=== PATIENT | male | born 1990 | race Hispanic/Latino ===

== ENCOUNTER 2019-12-12 22:18 | Emergency (ER) | payer SELFPAY ==
--- NOTE | ~2019-12-12 | XR_ITS ---
EXAMINATION: XR chest 2V 12/12/2019 22:49 INDICATION: Left-sided chest pain PROCEDURE: 2 view chest COMPARISON: 02/19/2019 FINDINGS: The lungs are clear. The cardiomediastinal silhouette is within normal limits. There are no pleural effusions. There is no pneumothorax suspected. IMPRESSION: 1: NO ACUTE CARDIOPULMONARY DISEASE. Reviewed, dictated and finalized at location A.
[2019-12-12 22:22] VITALS: BP 184/104; PULSE 101; RESP 29; TEMP 37; O2SAT 98
[2019-12-12 22:27] VITALS: PULSE 94
--- NOTE | 2019-12-12 22:27 | ECG_ITS ---
Measurements Intervals [place] Rate: 106 P: 25 CO: 162 QRS: -14 QRSD: 99 T: 19 QT: 321 QTc: 427 Interpretive Statements SINUS TACHYCARDIA DELAYED PRECORDIAL R/S TRANSITION BASELINE WANDER- AVR, AVF, V6 ABNORMAL ECG Electronically Signed On 12-13-2019 7:19:55 CDT by Francesco Gavin D.O.
[2019-12-12] MEDS: ASPIRIN 81 MG CHEWABLE TABLET 324 MG PO (22:35)
[2019-12-12 23:26] LABS: Basophils Percent Auto 0.4 % (0.2-1.2); Eosinophils Absolute Auto 0.2 K/mm3 (0-0.3); Eosinophils Percent Auto 1.7 % (0-4.4); Hematocrit 44.7 % (42.0-52.0); Hemoglobin 15.4 g/dL (14.0-18.0); Immature Granulocyte Absolute 0.03 K/mm3 (0.00-0.031); Immature Granulocyte Percent A 0.3 % (0-0.5); Lymphocytes Absolute Auto 2.94 K/mm3 (0.9-3.2); Lymphocytes Percent Auto 28.7 % (18.3-44.2); Mean Corpuscular HGB Conc 34.5 g/dl (32-36); Mean Corpuscular Hemoglobin 28.9 pg (26-34); Mean Platelet Volume 9.3 fl (7.4-10.4); Monocytes Absolute Auto 0.8 K/mm3 (0.1-0.6); Monocytes Percent Auto 7.6 % (2.6-8.5); Neutrophils Absolute Auto 6.3 K/mm3 (1.3-6.7); Neutrophils Percent Auto 61.3 % (45.5-73.1); Platelet Count Result 354 k/mm3 (150-375); Red Blood Count 5.32 M/mm3 (4.6-6.20); White Blood Count 10.2 K/mm3 (4.5-10.0)
[2019-12-12 23:36] LABS: INR 0.9; Prothrombin Time 12.3 Seconds (11.1-14.7)
[2019-12-12 23:37] LABS: Partial Thromboplastin Time 28.1 SECONDS (22.3-36.8)
[2019-12-12 23:38] LABS: Blood Urea Nitrogen 15 mg/dL (9-20); Calcium 9.3 mg/dL (8.4-10.2); Carbon Dioxide 24 mmol/L (22-30); Chloride 106 mmol/L (98-107); Estimated Glomerular Filt Rate > 60; Glucose 64 mg/dL (75-110); Potassium 3.6 mmol/L (3.4-5.0); Sodium 140 mmol/L (137-145)
[2019-12-12 23:47] VITALS: BP 136/77; PULSE 89; RESP 22; O2SAT 97
[2019-12-12 23:50] LABS: Troponin I < 0.012 ng/mL (0.000-0.034)
--- NOTE | 2019-12-12 23:52 | ED.CHESTPAIN ---
HPI - Chest Pain General Chief Complaint: Chest Pain Stated Complaint: L CHEST PAIN Time Seen by Provider: 12/12/19 22:29 Source: patient Mode of arrival: ambulatory Limitations: no limitations History of Present Illness HPI narrative: Patient is a 29-year-old male presents to the emergency department with complaint of chest pain. Patient ports onset of symptoms 4 days ago. Patient locates the pain in the left anterior chest and describes it as sharp and intermittent. He states the pain typically last couple of hours. Today's pain started at 9:00 this morning and has not subsided. Patient has been taking ibuprofen for pain which seems to help. He last took ibuprofen this morning which helped some. Patient denies any other associated symptoms or problems other than an occasional smoker's cough. complaint: chest pain Onset (ago): day(s) (4) Timing of current episode: episodic Pain location: left chest Quality: sharp Relieving factors: medication-other Exacerbating factors: nothing Treatment prior to arrival: other (ibuprofen) Risk Factors Coronary artery disease risk factors: smoking history Related Data Allergies Allergy/AdvReac Type Severity Reaction Status Date / Time No Known Allergies Allergy Verified 02/19/19 14:02 Review of Systems Review of Systems: All systems reviewed & are unremarkable except as noted in HPI and below Constitutional: Constitutional: Denies fever(s) Cardiovascular: Cardiovascular: Reports chest pain Respiratory: Respiratory: Reports cough and Denies dyspnea Gastrointestinal: Gastrointestinal: Denies nausea and Denies vomiting [facility] Past Medical History Medical History (Updated 12/13/19 @ 02:12 by Fatuma Torres MD) No significant past medical history Surgical History Surgical History (Updated 12/12/19 @ 23:56 by Fatuma Torres MD) History of hand surgery Social History Social History (Updated 12/12/19 @ 23:56 by Fatuma Torres MD) Smoking status: Current every day smoker Additional smoking assessment comments: 1 pack/week Gender identity (if verbalized by the patient): Male Exam Const: General: cooperative, no acute distress and alert Nutritional Appearance: obese Orientation/consciousness: patient oriented x3 Limitations: no limitations Chest: Chest palpation & inspection: normal inspection of the chest and no tenderness Resp: Effort & Inspection: normal respiratory effort Auscultation: clear to auscultation bilaterally Cardio: Rate: regular rate Rhythm: regular rhythm GI: GI Palp: Yes Soft to palpation and No Tenderness to palpation present (GI) Auscultation: normal bowel sounds Skin: General skin exam: normal color Neuro: General: patient oriented x3 Cognition (Neuro): normal cognition Speech: normal speech Extrem: General: normal to inspection, full ROM and no clubbing, cyanosis or edema Psych: Mental Status: mental status grossly normal Affect: normal affect Attitude: cooperative Course Course Emergency Course: Patient with improvement in symptoms after Toradol. Patient low risk heart score and negative troponin x2. Low risk for PE and negative d-dimer. Patient appropriate for outpatient management and advised primary care follow-up. Vital Signs Vital signs: Vital Signs Temperature 98.6 F 12/12/19 22:22 Pulse Rate 101 H 12/12/19 22:22 Respiratory Rate 29 H 12/12/19 22:22 Blood Pressure 184/104 H 12/12/19 22:22 Pulse Oximetry 98 12/12/19 22:22 Temperature 98.6 F 12/12/19 22:22 Pulse Rate 82 12/13/19 01:15 Respiratory Rate 12 12/13/19 01:15 Blood Pressure 122/75 12/13/19 01:15 Pulse Oximetry 95 12/13/19 01:15 MDM - Chest Pain Lab Data Attestation: I reviewed the patient's lab results. Result diagrams: 12/12/19 23:16 12/12/19 23:16 Labs: Lab Results 12/12/19 12/12/19 12/12/19 Range/Units 23:16 23:16 23:16 WBC 10.2 H (4.5-10.0) K/mm3 R
--- NOTE | 2019-12-12 23:58 | PC.NURSE ---
Lab aware of D Dimer add on.
[2019-12-13] MEDS: KETOROLAC 30 MG/ML VIAL (*BKC) IV PUSH (00:09)
[2019-12-13 00:23] LABS: D Dimer 0.27 ug/mL (<0.48)
[2019-12-13 01:15] VITALS: BP 122/75; PULSE 82; RESP 12; O2SAT 95
[2019-12-13 02:09] LABS: Troponin I < 0.012 ng/mL (0.000-0.034)
[2019-12-13 02:11] VITALS: BP 133/96; PULSE 93; RESP 19; O2SAT 95
[2019-12-13 02:15] VITALS: BP 136/79; PULSE 88; RESP 26; O2SAT 99
== END 2019-12-13 02:15 | disposition home or self-care (01) ==
PROVIDERS: Emergency Provider Emergency Medicine
DX: R07.9 Chest pain, unspecified (principal); F17.200 Nicotine dependence, unspecified, uncomplicated; R00.0 Tachycardia, unspecified; R94.31 Abnormal electrocardiogram [ECG] [EKG]
CPT/HCPCS: 36415; 71046; 80048; 84484; 85025; 85380; 85610; 85730; 93005; 96374; 99284; A9270; J1885

== ENCOUNTER 2020-05-16 21:48 | Emergency (ER) | payer SELFPAY ==
[2020-05-16 21:51] VITALS: BP 178/114; PULSE 108; RESP 18; TEMP 37.2; O2SAT 100
--- NOTE | 2020-05-16 22:31 | ED.EAR ---
HPI - Ear Problem General Chief complaint: Ear Stated complaint: left ear pain Time Seen by Provider: 05/16/20 22:12 Source: patient Mode of arrival: ambulatory Limitations: no limitations History of Present Illness HPI Narrative: Thsi patient is a 29 year old male who presents for evaluation left ear pain. He has been having pain inside his left ear for 4 days. He denies associated fever, nausea, vomiting, dizziness or fever. He also denies ear drainage. He took 1 amoxicillin yesterday and 1 amoxicillin today . He states today he is having pain when he bites down. MD Complaint: ear pain Location: left ear Duration: constant Related Data Allergies Allergy/AdvReac Type Severity Reaction Status Date / Time No Known Allergies Allergy Verified 02/19/19 14:02 Review of Systems Review of Systems: All systems reviewed & are unremarkable except as noted in HPI and below PMFSH Past Medical History Medical History (Updated 05/17/20 @ 00:00 by Romy Mac) No significant past medical history Surgical History Surgical History (Updated 12/12/19 @ 23:56 by Fatuma Torres MD) History of hand surgery Social History Social History (Updated 12/12/19 @ 23:56 by Fatuma Torres MD) Smoking status: Current every day smoker Additional smoking assessment comments: 1 pack/week Gender identity (if verbalized by the patient): Male Exam Const: General: no acute distress and alert Nutritional Appearance: obese Orientation/consciousness: patient oriented x3 HENMT: Head: normocephalic and atraumatic Ears: TM normal on the right and TM abnormal dull and erythematous on the left Face and sinus: normal facial exam, sinuses nontender, face symmetric and normal transillumination of the sinuses Mouth: Yes Normal oral and palatal mucosa present, Yes lip normal, Yes tongue normal, Yes oropharynx normal and Yes moist mucous membranes Teeth and gingiva: fair dentition Throat: posterior oropharynx normal, tonsils normal and uvula midline Resp: Effort & Inspection: normal respiratory effort Neuro: General: patient oriented x3 and moves all extremities Psych: Mental Status: mental status grossly normal Affect: normal affect Course Reevaluation(s) Reevaluation #1: Patient was found to have left otitis media and he was given an dose of antibiotics before discharge. Date: 05/16/20 Time: 23:08 Vital Signs Vital signs: Vital Signs Temperature 98.9 F 05/16/20 21:51 Pulse Rate 108 H 05/16/20 21:51 Respiratory Rate 18 05/16/20 21:51 Blood Pressure 178/114 H 05/16/20 21:51 Pulse Oximetry 100 05/16/20 21:51 Temperature 98.9 F 05/16/20 21:51 Pulse Rate 108 H 05/16/20 21:51 Respiratory Rate 18 05/16/20 21:51 Blood Pressure 178/114 H 05/16/20 21:51 Pulse Oximetry 100 05/16/20 21:51 Medical Decision Making Vital Signs Vital Signs: Vital Signs Temperature 98.9 F 05/16/20 21:51 Pulse Rate 108 H 05/16/20 21:51 Respiratory Rate 18 05/16/20 21:51 Blood Pressure 178/114 H 05/16/20 21:51 Pulse Oximetry 100 05/16/20 21:51 Temperature 98.9 F 05/16/20 21:51 Pulse Rate 108 H 05/16/20 21:51 Respiratory Rate 18 05/16/20 21:51 Blood Pressure 178/114 H 05/16/20 21:51 Pulse Oximetry 100 05/16/20 21:51 Discharge Plan Discharge Clinical Impression: Acute left otitis media Patient Disposition: Home, Self-Care Condition: Stable Instructions: Antibiotic Form, Ear Infection (ED) Prescriptions: New amoxicillin-pot clavulanate [Augmentin] 875-125 mg tablet 1 tablet PO Q12H Qty: 14 RF: 0 tramadol 50 mg tablet 50 mg PO Q6H PRN (Reason: pain) Qty: 7 RF: 0 Follow-up/Referrals: Parvez Gusman MD [Physician] - PHYSICIAN,[facility] [Primary Care Provider] - Discharge Date/Time: 05/16/20 23:26
[2020-05-16] MEDS: AMOXICILLIN/CLAVULANATE K 875-125 MG TAB 1 TABLET PO (23:06)
== END 2020-05-16 23:26 | disposition home or self-care (01) ==
PROVIDERS: Emergency Provider General Practice
DX: H66.92 Otitis media, unspecified, left ear (principal); F17.210 Nicotine dependence, cigarettes, uncomplicated
CPT/HCPCS: 99283; A9270

== ENCOUNTER 2020-11-12 10:26 | Outpatient (CLI) | payer OTHER, SELFPAY ==
--- NOTE | ~2020-11-12 | XR_ITS ---
XR knee LT 3V 11/12/2020 11:05 INDICATION: Left knee pain PROCEDURE: 3 views left knee COMPARISON: No prior studies for comparison. FINDINGS: Fracture, dislocation or subluxation is not identified. No significant joint effusion. The soft tissues appear within normal limits. No foreign bodies are identified. IMPRESSION: 1: NO ACUTE BONE OR JOINT ABNORMALITY IDENTIFIED. Reviewed, dictated and finalized at location B.
== END 2020-11-12 10:27 ==
LOC: MICIMG 10:28
PROVIDERS: Visit Provider Nurse Practitioner Family
DX: M25.562 Pain in left knee (principal)
CPT/HCPCS: 73562

== ENCOUNTER 2022-02-04 01:08 | Emergency (ER) | payer OTHER, SELFPAY ==
--- NOTE | ~2022-02-04 | XR_ITS ---
EXAMINATION: XR chest 2V DATE: 02/04/2022 01:57 INDICATION: Chest pain TECHNIQUE: PA and lateral views of the chest are obtained. COMPARISON: 12/12/2019 FINDINGS: The lungs are free of acute opacities. There is no pleural effusion or pneumothorax. The ca rdiomediastinal silhouette is normal. The visualized bones and soft tissues are unremarkable. IMPRESSION: 1. No acute cardiopulmonary abnormality. Reviewed, dictated and finalized at location A.
[2022-02-04 01:13] VITALS: BP 161/86; PULSE 90; RESP 18; TEMP 36.3; O2SAT 100
--- NOTE | 2022-02-04 01:19 | ECG_ITS ---
Measurements Intervals [place] Rate: 93 P: 32 [place]: 157 QRS: -3 QRSD: 107 T: 13 QT: 328 QTc: 408 Interpretive Statements SINUS RHYTHM WITHIN NORMAL LIMITS COMPARED TO ECG 12/12/2019 22:24:28 NO CHANGE Electronically Signed On 02-04-2022 7:56:44 CDT by Jax Edwards M.D.
[2022-02-04 01:20] VITALS: BP 151/90
--- NOTE | 2022-02-04 01:29 | ED.DIZZY ---
HPI - Dizziness General Chief Complaint: Dizziness <DARIUSZ Hasnon Last Filed: 02/04/22 02:51> Stated Complaint: dizzy <DARIUSZ Hanson Last Filed: 02/04/22 02:51> Time Seen by Provider: 02/04/22 01:24 <DARIUSZ Hanson Last Filed: 02/04/22 02:51> History of Present Illness HPI Narrative: Patient is a 31-year-old male with a history of hypertension, obesity here for evaluation of lightheadedness tonight. Patient states that he was seated in his usual state of health, when he gradually began to feel dizzy and lightheaded at the same time. States this improved after eating a meal. Patient was asymptomatic for about an hour, but then he developed some chest pain on the left side of his chest in addition to some numbness and tingling in his left arm and return of the lightheadedness. He states that the chest pain very lasted for 1-2 minutes, was sharp in nature, and is now resolved without intervention. Numbness and tingling in his left arm is still present along the ulnar aspect. Additionally having a headache along the left side of his head, has been experiencing intermittent headaches for several months and has alerted his primary care doctor who attributed them to hypertension. Denies weakness, fevers, chills, ear pain, hearing loss, visual changes, nausea, vomiting, shortness of breath, cough. <DARIUSZ Hanson Last Filed: 02/04/22 02:51> Related Data Home Medications: Home Medications Medication Instructions Recorded Confirmed ibuprofen 200 mg tablet 200 mg PO Q6H PRN 09/12/21 01/04/22 <DARIUSZ Hanson Last Filed: 02/04/22 02:51> Allergies/Adverse Reactions: Allergies Allergy/AdvReac Type Severity Reaction Status Date / Time No Known Allergies Allergy Verified 01/04/22 09:29 <DARIUSZ Hanson Last Filed: 02/04/22 02:51> Review of Systems Review of Systems: Gen: Reports lightheadedness. Denies fevers or chills Eyes: Denies eye pain or visual change ENT: Denies congestion Respiratory: Denies shortness of breath or cough CV: Reports chest pain. Denies palpitations GI: Denies abdominal pain nausea, emesis or diarrhea : denies burning, urgency, frequency or hematuria Musculoskeletal: Denies back pain or muscle pain Neuro: Reports headache, paresthesias in left arm. Skin: Denies rash Except as documented, all other systems reviewed and negative <Ema Parsons PA-C - Last Filed: 02/04/22 02:51> [facility] Past Medical History Medical History: Medical History Morbid (severe) obesity due to excess calories No significant past medical history <Ema Parsons PA-C - Last Filed: 02/04/22 02:51> Surgical History Surgical History: Surgical History History of hand surgery <Ema Parsons PA-C - Last Filed: 02/04/22 02:51> Family History Family History: Family History (Updated 01/04/22 @ 15:22 by Lamar Burt CMA) Father Acute myocardial infarction Mother Hypertension Hypothyroidism Sibling COVID-19 <Ema Parsons PA-C - Last Filed: 02/04/22 02:51> Social History Social History: Social History (Updated 01/04/22 @ 15:22 by Lamar Burt [facility]) Smoking status: Light tobacco smoker Tobacco type: cigarettes Second hand tobacco smoke exposure: No Additional smoking assessment comments: 1 pack/week Alcohol intake: current Substance use: never Substance use type: does not use 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
[2022-02-04 01:39] LABS: Basophils Absolute Auto 0.1 K/mm3 (0.0-0.1); Basophils Percent Auto 0.6 % (0.2-1.2); Eosinophils Absolute Auto 0.3 K/mm3 (0-0.3); Eosinophils Percent Auto 2.4 % (0-4.4); Hematocrit 50.3 % (42.0-52.0); Hemoglobin 16.4 g/dL (14.0-18.0); Immature Granulocyte Absolute 0.03 K/mm3 (0.00-0.031); Immature Granulocyte Percent A 0.3 % (0-0.5); Lymphocytes Absolute Auto 2.57 K/mm3 (0.9-3.2); Lymphocytes Percent Auto 24.1 % (18.3-44.2); Mean Corpuscular HGB Conc 32.6 g/dl (32-36); Mean Corpuscular Hemoglobin 27.6 pg (26-34); Mean Corpuscular Volume 84.7 fl (80-100); Monocytes Percent Auto 9.3 % (2.6-8.5); Neutrophils Absolute Auto 6.7 K/mm3 (1.3-6.7); Neutrophils Percent Auto 63.3 % (45.5-73.1); Platelet Count Result 293 k/mm3 (150-375); Red Blood Count 5.94 M/mm3 (4.6-6.20); Red Cell Distribution Width 14.6 % (11.5-14.5); White Blood Count 10.7 K/mm3 (4.5-10.0)
[2022-02-04 01:50] LABS: Alanine Aminotransferase 36 U/L (6-50); Albumin Level 4.5 g/dL (3.5-5.1); Alkaline Phosphatase 80 U/L (38-126); Anion Gap 7 mmol/L (8-16); Aspartate Amino Transferase 29 U/L (17-59); Bilirubin,Total 0.4 mg/dL (0.2-1.3); Blood Urea Nitrogen 18 mg/dL (9-20); Calcium 9.2 mg/dL (8.4-10.2); Carbon Dioxide 28 mmol/L (22-30); Chloride 106 mmol/L (98-107); Estimated CRCL calculation 116 ml/min; Estimated Glomerular Filt Rate > 60; Glucose 97 mg/dL (65-110); Potassium 3.8 mmol/L (3.4-5.0); Sodium 141 mmol/L (137-145)
[2022-02-04 02:26] LABS: Troponin I < 0.012 ng/mL (0.000-0.034)
[2022-02-04] MEDS: KETOROLAC 15 MG/ML VIAL (*BKC) IV PUSH (02:51)
[2022-02-04 02:53] VITALS: BP 136/73; PULSE 76; RESP 22; O2SAT 95
[2022-02-04 04:17] VITALS: BP 136/64; PULSE 67; RESP 20; O2SAT 95
[2022-02-04 05:22] VITALS: BP 131/53; PULSE 76; RESP 18; O2SAT 95
[2022-02-04 05:25] LABS: Troponin I < 0.012 ng/mL (0.000-0.034)
== END 2022-02-04 06:08 | disposition home or self-care (01) ==
PROVIDERS: Physician Assistant; Emergency Provider Emergency Medicine; PCP Family Medicine
DX: R42 Dizziness and giddiness (principal); I10 Essential (primary) hypertension; E66.01 Morbid (severe) obesity due to excess calories; Z68.42 Body mass index [BMI] 45.0-49.9, adult; F17.210 Nicotine dependence, cigarettes, uncomplicated
CPT/HCPCS: 36415; 71046; 80053; 84484; 85025; 93005; 96374; 99284; J1885

== ENCOUNTER 2023-02-12 17:06 | Emergency (ER) | payer OTHER, SELFPAY ==
--- NOTE | ~2023-02-12 | CT_ITS ---
EXAMINATION: CT abdomen pelvis w con DATE: 02/12/2023 20:09 INDICATION: Right lower quadrant abdominal pain TECHNIQUE: Computed tomography (CT) of the abdomen and pelvis was performed with 100 cc Omnipaque 350 intravenous contrast. Automated exposure control and iterative reconstruction technique were employe d. Exam dose: 1978.07 mGy-cm total exam DLP. COMPARISON: None. FINDINGS: There is minimal atelectasis at the lung bases. Normal heart size. No pericardial or pleural effusion. There is hepatic steatosis. No hepatic, splenic, pancreatic, adrenal space-occupying mass lesion. The gallbladder appears unremarkable. No bile duct or pancreatic duct dilatation. At least one cyst on each side kidney, the largest on the left, measuring 2.6 cm. No urinary tract calculus or hydroureteronephrosis. Normal caliber of the abdominal aorta. No periaortic or aortocaval lymphadenopathy. There are some nonenlarged iliac lymph nodes. The urinary bladder and prostate gland are unremarkable. Normal appendix. Diverticulosis of the colon; no evidence of diverticulitis. No bowel obstruction, karol wel wall thickening, pneumatosis or intraperitoneal free air. Small fat-containing umbilical hernia. No suspicious osteolytic or osteoblastic lesions. IMPRESSION: Normal appendix Diverticulosis of the colon; no evidence of diverticulitis Renal cysts Hepatic steatosis Reviewed, dictated and finalized at Location A. Reviewed, dictated and finalized at location A.
[2023-02-12 17:12] VITALS: BP 130/77; PULSE 100; RESP 18; TEMP 36.7; O2SAT 99
[2023-02-12 19:02] LABS: Basophils Absolute Auto 0.1 K/mm3 (0.0-0.1); Basophils Percent Auto 0.7 % (0.2-1.2); Eosinophils Absolute Auto 0.3 K/mm3 (0-0.3); Eosinophils Percent Auto 2.7 % (0-4.4); Hematocrit 47.1 % (42.0-52.0); Hemoglobin 15.5 g/dL (14.0-18.0); Immature Granulocyte Absolute 0.03 K/mm3 (0.00-0.031); Immature Granulocyte Percent A 0.3 % (0-0.5); Lymphocytes Absolute Auto 2.21 K/mm3 (0.9-3.2); Lymphocytes Percent Auto 22.3 % (18.3-44.2); Mean Corpuscular HGB Conc 32.9 g/dl (32-36); Mean Corpuscular Hemoglobin 28.6 pg (26-34); Mean Corpuscular Volume 86.9 fl (80-100); Mean Platelet Volume 9.3 fl (7.4-10.4); Monocytes Absolute Auto 0.8 K/mm3 (0.1-0.6); Monocytes Percent Auto 8.2 % (2.6-8.5); Neutrophils Absolute Auto 6.5 K/mm3 (1.3-6.7); Neutrophils Percent Auto 65.8 % (45.5-73.1); Platelet Count Result 273 k/mm3 (150-375); Red Blood Count 5.42 M/mm3 (4.6-6.20); Red Cell Distribution Width 13.6 % (11.5-14.5); White Blood Count 9.9 K/mm3 (4.5-10.0)
[2023-02-12 19:04] LABS: Appearance Urine Clear (Clear); Bilirubin Urine Negative (Negative); Blood Urine Negative (Negative); Color Urine Yellow (Yellow); Glucose Urine UA Negative (Negative); Ketones Urine Negative (Negative); Leukocyte Esterase Ur Negative LEU/UL (Negative); Nitrate Urine Negative (Negative); Protein Urine Negative (Negative); Specific Grav Ur 1.025 (1.001-1.035); Urobilinogen Urine 0.2 mg/dL (<2.0); pH Urine 5.5 (5.0-9.0)
[2023-02-12 19:06] LABS: Add Urine Microscopic? NO
[2023-02-12 19:11] LABS: Alanine Aminotransferase 35 U/L (6-50); Albumin Level 4.2 g/dL (3.5-5.1); Alkaline Phosphatase 83 U/L (38-126); Anion Gap 6 mmol/L (8-16); Aspartate Amino Transferase 33 U/L (17-59); Bilirubin,Total 0.3 mg/dL (0.2-1.3); Blood Urea Nitrogen 27 mg/dL (9-20); Calcium 8.9 mg/dL (8.4-10.2); Carbon Dioxide 27 mmol/L (22-30); Chloride 106 mmol/L (98-107); Estimated Glomerular Filt Rate > 60; Glucose 97 mg/dL (65-110); Lipase 63 U/L (23-300); Potassium 3.9 mmol/L (3.4-5.0); Sodium 139 mmol/L (137-145)
--- NOTE | 2023-02-12 19:22 | ED.GENADULT ---
HPI - General Adult General Chief complaint: Abdominal Pain Stated complaint: rlq and right low back pain/nausea Time Seen by Provider: 02/12/23 18:58 History of Present Illness HPI narrative: This is a 32-year-old male presenting to ED with chief complaint of back pain. Patient says that 1 week ago he started pain in his right flank. It is then transition wraps around into his right lower quadrant. It is sharp pain, 8/10 intensity and comes and goes. Never had pain like this before, no improvement with ibuprofen it is worse with movement. He has had some nausea but no vomiting. No dysuria or blood in his urine, no fever chills chest pain or difficulty breathing. No history of kidney stones. Related Data Allergies Allergy/AdvReac Type Severity Reaction Status Date / Time No Known Allergies Allergy Verified 02/12/23 18:51 [facility] Past Medical History Medical History Morbid (severe) obesity due to excess calories No significant past medical history Surgical History Surgical History H/O laser assisted in situ keratomileusis History of hand surgery Family History Family History Father Acute myocardial infarction Mother Hypertension Hypothyroidism Sibling COVID-19 Sibling Diabetes mellitus Hypertension Social History Social History Smoking status: Light tobacco smoker Tobacco type: cigarettes Second hand tobacco smoke exposure: No Additional smoking assessment comments: 1 pack/week Alcohol intake: current Substance use: never Substance use type: does not use Lack of Transportation: No Lack of Food: Never True Current Housing: I Have Housing Concerned About Future Housing: No Difficulty Paying Gas/Electric Bills: No Difficulty Paying for Meds: No Currently Unemployed: No Education: High School Diploma/GED Difficulty w/ Childcare or Family Care: No Living arrangements: with family Occupation/Education: occupation 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 Head: atraumatic. EYES: EOMI, NOSE: Atraumatic NECK: Trachea midline RESPIRATORY: No increased rate of breathing, CTAB CARDIOVASCULAR: RRR, ABDOMINAL: Obese but tenderness in the right lower quadrant without guarding or rebound. No cva tenderness MUSCULOSKELETAl: No obvious deformities NEURO: Alert. Moving 4/4 extremities SKIN:: Warm, dry. Normal color PSYCHIATRIC: Normal affect Course Vital Signs Vital signs: Vital Signs Temperature 98.1 F 02/12/23 17:12 Pulse Rate 100 02/12/23 17:12 Respiratory Rate 18 02/12/23 17:12 Blood Pressure 130/77 02/12/23 17:12 Pulse Oximetry 99 02/12/23 17:12 Oxygen Delivery Room Air 02/12/23 17:12 Temperature 98.7 F 02/12/23 19:39 Pulse Rate 82 02/12/23 19:39 Respiratory Rate 16 02/12/23 19:39 Blood Pressure 110/64 02/12/23 19:39 Pulse Oximetry 100 02/12/23 19:39 Oxygen Delivery Room Air 02/12/23 17:12 Medical Decision Making MDM Narrative Medical decision making narrative: -Presentation: 32-year-old male presenting with right-sided back and abdominal pain. abdominal lab work and CT abdomen pelvis has been ordered. 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 Lives with his mother. -External Chart Review: Review PCP office visits from August 2022 -Hx from independent Sources: mother @bedside -Independent interpretation of studies: she normal. Metabolic panel unrem
[2023-02-12] MEDS: ONDANSETRON INJ 4 MG/2 ML VIAL IV PUSH (19:26)
[2023-02-12] MEDS: HYDROmorphone HCL INJ (*CRX) 1 MG/ML SYR 0.5 MG IV PUSH (19:26)
[2023-02-12] MEDS: SODIUM CHLORIDE 0.9% IV 2,000 ML 999 ML IV CONT (19:27)
[2023-02-12] MEDS: methocarbamoL 750 MG TABLET 1500 MG PO (19:36)
[2023-02-12] MEDS: KETOROLAC 15 MG/ML VIAL (*BKC) IV PUSH (19:36)
[2023-02-12 19:39] VITALS: BP 110/64; PULSE 82; RESP 16; TEMP 37.1; O2SAT 100
== END 2023-02-12 21:21 | disposition home or self-care (01) ==
PROVIDERS: Emergency Medicine; Emergency Provider Emergency Medicine; PCP Family Medicine
DX: R10.31 Right lower quadrant pain (principal); M54.50 Low back pain, unspecified; E66.01 Morbid (severe) obesity due to excess calories; F17.210 Nicotine dependence, cigarettes, uncomplicated
CPT/HCPCS: 36415; 74177; 80053; 81003; 83690; 85025; 96361; 96374; 96375; 99284; A9270; J1170; J1885; J2405; J7030; Q9967

== ENCOUNTER 2023-02-22 14:37 | Outpatient (CLI) | payer OTHER, SELFPAY ==
--- NOTE | ~2023-02-22 | XR_ITS ---
EXAMINATION: XR chest 2V DATE: 02/22/2023 15:14 INDICATION: Cough, unspecified. TECHNIQUE: Frontal and lateral views of the chest were obtained. COMPARISON: Chest 2 views 02/04/2022, CT abdomen and pelvis 02/12/2023 FINDINGS: The chest demonstrates clear lungs without pneumonia, pleural effusion, or pneumothorax. Th e heart size is normal. IMPRESSION: 1. No acute cardiopulmonary disease. Reviewed, dictated and finalized at location E.
--- NOTE | ~2023-02-22 | XR_ITS ---
EXAMINATION: XR thoracic spine 3V DATE: 02/22/2023 15:14 INDICATION: Dorsalgia, unspecified. TECHNIQUE: 3 views of thoracic spine were obtained. COMPARISON: CT abdomen and pelvis 02/12/2023 FINDINGS: There is 10 degrees levoscoliosis of upper thoracic spine. Vertebral body heights are santy l. There is mildly decreased disc height at multiple levels. There are endplate osteophytes at most l evels. IMPRESSION: 1. Mild thoracic spondylosis. 2. Thoracic levoscoliosis. Reviewed, dictated and finalized at location E.
--- NOTE | ~2023-02-22 | XR_ITS ---
EXAMINATION: XR lumbar spine 6V w bending DATE: 02/22/2023 15:14 INDICATION: Dorsalgia, unspecified. TECHNIQUE: 6 views of lumbar spine including flexion and extension views were obtained. COMPARISON: None. FINDINGS: There is 10 degrees levoscoliosis of lumbar spine. The spine is hypomobile with flexion and extension. Vertebral body heights and intervertebral disc heights are normal. There is multilevel mi ld facet joint osteoarthritis. IMPRESSION: 1. Mild lumbar facet joint osteoarthritis. 2. Lumbar dextroscoliosis. Reviewed, dictated and finalized at location E.
== END 2023-02-22 14:38 | disposition home or self-care (01) ==
LOC: ANHIMG 14:43
PROVIDERS: PCP Family Medicine; Visit Provider Family Medicine
DX: M54.9 Dorsalgia, unspecified (principal); R05.9 Cough, unspecified; M47.896 Other spondylosis, lumbar region; M41.86 Other forms of scoliosis, lumbar region; M41.84 Other forms of scoliosis, thoracic region; M47.894 Other spondylosis, thoracic region
CPT/HCPCS: 71046; 72072; 72114

== ENCOUNTER 2024-02-04 14:32 | Outpatient (CLI) | payer OTHER, SELFPAY ==
--- NOTE | ~2024-02-04 | XR_ITS ---
EXAMINATION: XR foot RT 2V DATE: 02/04/2024 14:48 INDICATION: Right foot pain. TECHNIQUE: 2 views of right foot were obtained. COMPARISON: None. FINDINGS: Bone alignment is normal. No fracture. There is mild osteoarthritis of some of the midfoot joints. There is an enthesophyte at plantar aspect of calcaneal tuberosity. IMPRESSION: 1. Mild polyarticular osteoarthritis. Reviewed, dictated and finalized at location A.
[2024-02-04 15:34] LABS: Uric Acid 8.1 mg/dL (3.5-8.5)
== END 2024-02-04 14:33 | disposition home or self-care (01) ==
PROVIDERS: PCP Family Medicine
DX: M19.071 Primary osteoarthritis, right ankle and foot (principal); I10 Essential (primary) hypertension; E66.01 Morbid (severe) obesity due to excess calories
CPT/HCPCS: 36415; 73620; 84550

== ENCOUNTER 2024-07-20 17:27 | Emergency (ER) | payer OTHER, SELFPAY ==
--- NOTE | ~2024-07-20 | XR_ITS ---
XR chest 2V DATE: 07/20/2024 18:26 INDICATION: Chest pain, burning TECHNIQUE: PA and lateral views COMPARISON: 02/22/2023 PA and lateral chest FINDINGS: Normal heart size. No hilar or mediastinal enlargement. No pulmonary infiltrate or consolid ation, pleural effusion or pulmonary vascular congestion or pneumothorax. Included skeletal structures are unremarkable other than minimal degenerative spurring of the thoraci c spine. IMPRESSION: No active cardiopulmonary disease Reviewed, dictated and finalized at location [facility]. TH PSYCHOLOGIST
--- NOTE | ~2024-07-20 | CT_ITS ---
Non-contrast Head CT History: Headache Technique: Axial non-contrast imaging of the brain was performed. Dose reduction technique was used on this scan by utilizing automated exposure control and iterative reconstruction technique. The dose -length product (DLP) was 756.67 mGy-cm. Findings: There is no evidence of intracranial hemorrhage, solid mass lesion, or acute infarct. Arac hnoid cyst noted in the anterior left temporal fossa. Brain parenchyma appears normal. The ventricle s and subarachnoid spaces are otherwise normal in size. The calvarium appears normal. There is mild mucosal thickening in the right maxillary and ethmoid sinuses. The remaining visualized paranasal sin uses and mastoid air cells are clear. Impression: No acute intracranial abnormality. Left temporal fossa arachnoid cyst. Mild sinus disease, as above. Reviewed, dictated and finalized at [facility]. RTING ANALYST Impression: No acute intracranial abnormality. Left temporal fossa arachnoid cyst. Mild sinus disease, as above.
--- NOTE | ~2024-07-20 | CT_ITS ---
Clinical Indication: Cough, fever, abdominal pain CT Scan of the Chest, Abdomen, and Pelvis with Contrast: Technique: Contiguous sections were acquired throughout the chest, abdomen, and pelvis after intraven ous administration of 100 cc of Omnipaque 350. Dose reduction technique was used on this scan by saritha cooper automated exposure control and iterative reconstruction technique. The dose-length product (DL P) was 2470.85 mGy-cm. Comparison: 02/12/2023 Findings: There is no evidence of any significant mediastinal, hilar or axillary lymphadenopathy. The mediastin al soft tissues appear normal. There is no evidence of pleural or pericardial effusion. The lungs are clear. No pulmonary nodules or infiltrates are noted. The liver, spleen, pancreas, gallbladder, adrenals and kidneys are within normal limits. No evidence of aortic aneurysm. No lymphadenopathy. No bowel obstruction or bowel wall thickening. There is no evidence to suggest acute appendicitis. Urinary bladder is unremarkable. No pelvic mass seen. No ascites. Impression: No significant abnormalities seen. Reviewed, dictated and finalized at [facility]. ROASTER Impression: No significant abnormalities seen.
[2024-07-20 17:30] VITALS: BP 143/89; PULSE 114; RESP 19; TEMP 38.1; O2SAT 97
--- NOTE | 2024-07-20 17:36 | ECG_ITS ---
Test Date: 2024-07-20 17:46:07 Measurements Intervals [place] Rate: 124 P: 34 [place]: 156 QRS: -72 QRSD: 98 T: 45 QT: 281 QTc: 404 Interpretive Statements SINUS TACHYCARDIA MARKED LEFT AXIS DEVIATION [QRS AXIS < -30] PATTERN CONSISTENT WITH PULMONARY DISEASE No previous ECG available for comparison Electronically Signed On 07-21-2024 12:44:35 [place] by Richard Luevano M.D.
[2024-07-20 18:03] LABS: Basophils Absolute Auto 0.1 K/mm3 (0.0-0.1); Basophils Percent Auto 0.6 % (0.2-1.2); Eosinophils Absolute Auto 0.2 K/mm3 (0-0.3); Eosinophils Percent Auto 1.5 % (0-4.4); Hematocrit 49.5 % (42.0-52.0); Hemoglobin 16.9 g/dL (14.0-18.0); Immature Granulocyte Absolute 0.03 K/mm3 (0.00-0.031); Immature Granulocyte Percent A 0.3 % (0-0.5); Lymphocytes Absolute Auto 1.03 K/mm3 (0.9-3.2); Lymphocytes Percent Auto 10.1 % (18.3-44.2); Mean Corpuscular HGB Conc 34.1 g/dl (32-36); Mean Corpuscular Hemoglobin 28.6 pg (26-34); Mean Corpuscular Volume 83.8 fl (80-100); Mean Platelet Volume 9.1 fl (7.4-10.4); Monocytes Absolute Auto 1.2 K/mm3 (0.1-0.6); Monocytes Percent Auto 11.5 % (2.6-8.5); Neutrophils Absolute Auto 7.7 K/mm3 (1.3-6.7); Platelet Count Result 284 k/mm3 (150-375); Red Blood Count 5.91 M/mm3 (4.6-6.20); White Blood Count 10.2 K/mm3 (4.5-10.0)
[2024-07-20 18:15] LABS: Alanine Aminotransferase 31 U/L (6-50); Albumin Level 4.1 g/dL (3.5-5.1); Alkaline Phosphatase 83 U/L (38-126); Anion Gap 7 mmol/L (4-12); Aspartate Amino Transferase 34 U/L (17-59); Bilirubin,Total 0.6 mg/dL (0.2-1.3); Blood Urea Nitrogen 17 mg/dL (9-20); Calcium 8.9 mg/dL (8.4-10.2); Carbon Dioxide 25 mmol/L (22-30); Chloride 103 mmol/L (98-107); Estimated CRCL calculation 134 ml/min; Estimated Glomerular Filt Rate > 60; Glucose 121 mg/dL (65-110); Lipase 51 U/L (23-300); Potassium 3.4 mmol/L (3.4-5.0); Sodium 135 mmol/L (137-145)
[2024-07-20 18:41] LABS: Influenza A QL RT-PCR Negative (Negative); Influenza B QL RT-PCR Negative (Negative); RSV RNA, RT-PCR Negative (Negative); SARS-CoV-2 RNA PCR Negative (Negative)
[2024-07-20 21:46] VITALS: BP 141/85; PULSE 119; RESP 18; O2SAT 96
--- NOTE | 2024-07-20 21:57 | ED_ITS ---
HPI - Abdominal Pain General Chief Complaint: Abdominal Pain Stated Complaint: headache for 2 months/burning with cough/vomiting Time Seen by Provider: 07/20/24 21:15 Source: patient Mode of arrival: ambulatory Limitations: no limitations History of Present Illness HPI narrative: Patient is a 34-year-old male who presents the ED with multiple complaints. Reports he has been having a headache for the last 2 weeks, progressively worsening. Present throughout his left side. He does note history of frequent headaches. Has not taken anything for his pain. Also reports having intermittent right-sided lower abdominal pain, radiating around to his right lower back for the last 3 or so weeks. States pain became worse today which prompted him to come to the ED. Reports having nausea and vomiting today. Kory es diarrhea/constipation. Was noted to be febrile here. Denies fevers at home. Denies urinary complaints. Also reports having a cough and congestion for the last couple of days. Reports burning in his chest with coughing. Denies chest pain. Denies shortness of breath. Related Data Allergies Allergy/AdvReac Type Severity Reaction Status Date / Time No Known Allergies Allergy Verified 03/19/24 15:56 Review of Systems Review of Systems: All systems reviewed & are unremarkable except as noted in HPI. All systems reviewed & are unremarkable except as noted in HPI and below PMFSH Past Medical History Medical History Cough Morbid (severe) obesity due to excess calories Need for lipid screening No significant past medical history Surgical History Surgical History H/O laser assisted in situ keratomileusis History of hand surgery Family History Family History Father Acute myocardial infarction Mother Hypertension Hypothyroidism Sibling COVID-19 Sibling Diabetes mellitus Hypertension Social History Social History Smoking status: Light tobacco smoker Tobacco type: cigarettes Second hand tobacco smoke exposure: No Additional smoking assessment comments: 1 pack/month Alcohol intake: current Substance use: never Substance use type: does not use Do You Feel Safe in your Home?: Yes Lack of Transportation: No Lack of Food: Never True Current Housing: I Have Housing Concerned About Future Housing: No Difficulty Paying Gas/Electric Bills: No Difficulty Paying for Meds: No Currently Unemployed: No Education: High School Diploma/GED Difficulty w/ Childcare or Family Care: No Living arrangements: with family Occupation/Education: occupation 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 HEAD: Normocephalic, atraumatic. RESPIRATORY: Airway patent, respirations nonlabored. Clear to auscultation bilaterally, no rales, rhonchi, wheezing. No significant focal lung sounds. Occasional coughing on exam. CARDIOVASCULAR: Regular rate and rhythm without murmurs, rubs, or gallops. ABDOMINAL: Soft, tenderness to palpation diffusely in R abdomen- worst in right mid to lower abdomen, no rebound. Nondistended. Normoactive BS. MUSCULOSKELETAL: Moves all extremities. No gross deformities. No peripheral edema. SKIN: Warm, dry, normal color. NEURO: A&O X3. Speech clear. Cranial nerves II-XII grossly intact. Steady gait. No ataxic movements. No focal deficits. PSYCHIATRIC: Appropriate mood and affect. Normal interaction. Course Vital Signs Vital signs: Vital Signs Temperature 100.5 F H 07/20/24 17:30 Pulse Rate 114 H 07/20/24 17:30 Respiratory Rate 19 07/20/24 17:30 Blood Pressure 143/89 H 07/20/24 17:30 Pulse Oximetry 97 07/20/24 17:30 Oxygen Delivery Room Air 07/20/24 17:30 Temperature 99.4 F 07/20/24 22:03 Pulse Rate 101 H 07/21/24 01:13 Respiratory Rate 18 07/21/24 01:13 Blood Pressure 133/82 07/21/24 01:13 Pulse Oximetry 97 07/21/24 01:13 Oxygen Delivery Room Air 07/20/24 17:30 MDM - Abdominal Pain MDM Narrative Medical decision making narrative: Patient presented to ED with headache, right-sided abdominal pain, nausea, vomiting, cough. Patient noted to be tachycardic and febrile upon arrival. O2 stable on RA. Fluids and Tylenol initiated. Cbc with blood cell count of 10.2. CMP is unremarkable. Normal LFTs and lipase. UA with 6-10 WBC, 3+ urine bacteria. Sent for culture. Lactic WNL. Viral swabs are negative. EKG without ischemic changes. Troponin undetectable. Chest x-ray is clear. Patient denies any chest pain or shortness breath. Low suspicion for ACS/PE, low risk [place]. CT scan of brain showing arachnoid cyst on left side, otherwise no acute intracranial pathology. Patient does report known history of this. CT scan of chest/abdomen/pelvis was obtained and unremarkable. No evidence of pneumonia. No intra-abdominal abnormalities, no surgical findings. No cholelithiasis or GB etiology noted. Normal appendix. Overall workup is fairly non revealing. Discussed lab and imaging findings with patient. Given fevers and abnormal UA, will treat for UTI as there are no other appreciable infectious processes at this time. Symptoms may also be related to viral URI, viral infection. Per med rec, it appears patient is on semaglutide. Abdominal pain may be GI upset related to medication. Overall patient feels reassured by workup here. He is feeling better with supportive therapy. Feel he is safe for discharge home with outpatient follow- up. Recommended he have close follow-up with his PCP for further evaluation. He does report he has an appointment next Sunday. Discussed strict return pr ecautions should symptoms worsen. Patient in agreement with plan. Discharged in stable condition. Vital signs stable at time of D/C. Heart rate did improve into the 90s consistently after fluid administration. Medical Records Attestation: I reviewed the patient's medical records. Lab Data Attestation: I reviewed the patient's lab results. 07/20/24 17:57 07/20/24 17:57 Labs: Lab Results 07/20/24 07/20/24 07/20/24 Range/Units 17:57 21:43 23:05 WBC 10.2 H (4.5-10.0) K/mm3 RBC 5.91 (4.6-6.20) M/mm3 Hgb 16.9 (14.0-18.0) g/dL Hct 49.5 (42.0-52.0) % MCV 83.8 (80-100) fl MCH 28.6 (26-34) pg MCHC 34.1 (32-36) g/dl RDW 14.0 (11.5-14.5) % Plt Count 284 (150-375) k/mm3 MPV 9.1 (7.4-10.4) fl Immature Gran % (Auto) 0.3 (0-0.5) % Neut % (Auto) 76.0 H (45.5-73.1) % Lymph % (Auto) 10.1 L (18.3-44.2) % [place] % (Auto) 11.5 H (2.6-8.5) % Eos % (Auto) 1.5 (0-4.4) % Baso % (Auto) 0.6 (0.2-1.2) % Lymph # (Auto) 1.03 (0.9-3.2) K/mm3 [place] # (Auto) 1.2 H (0.1-0.6) K/mm3 Eos # (Auto) 0.2 (0-0.3) K/mm3 Baso # (Auto) 0.1 (0.0-0.1) K/mm3 Abs Immat Gran (auto) 0.03 (0.00-0.031) K/mm3 Absolute Neuts (auto) 7.7 H (1.3-6.7) K/mm3 Absolute Nucleated RBC 0.000 (0.0-0.012) K/mm3 Nucleated RBC % 0.0 (0.0-0.2) % Sodium 135 L (137-145) mmol/L Potassium 3.4 (3.4-5.0) mmol/L Chloride 103 (98-107) mmol/L Carbon Dioxide 25 (22-30) mmol/L Anion Gap 7 (4-12) mmol/L BUN 17 D (9-20) mg/dL Creatinine 1.10 (0.7-1.3) mg/dL Estim Creat Clear Calc 134 ml/min Estimated GFR > 60 (59 - ) Glucose 121 H (65-110) mg/dL Lactic Acid 0.9 (0.7-2.0) mmol/L Calcium 8.9 (8.4-10.2) mg/dL Total Bilirubin 0.6 (0.2-1.3) mg/dL AST 34 (17-59) U/L ALT 31 (6-50) U/L Alkaline Phosphatase 83 (38-126) U/L Troponin I < 0.012 (0.000-0.034) ng/mL Total Protein 7.0 (6.3-8.2) g/dL Albumin 4.1 (3.5-5.1) g/dL Lipase 51 (23-300) U/L Urine Color Dark yellow (Yellow) Urine Appearance Cloudy H (Clear) Urine pH 6.5 (5.0-9.0) Ur Specific [place] 1.034 (1.001-1.035) Urine Protein Trace (Negative) mg/dL Urine Glucose (UA) Negative (Negative) mg/dL Urine Ketones Trace H (Negative) mg/dL Ur Blood (Man) Negative (Negative) Urine Nitrate Negative (Negative) Urine Bilirubin Negative (Negative) Urine Urobilinogen 1.0 (<2.0) mg/dL Add Ur Microanalysis Reviewed Leukocyte Esterase Rfl Trace H (Negative) RICKIE/UL Urine RBC 3-5 H (0-2) /hpf Urine WBC 6-10 H (0-3) /hpf Ur Squamous Epith Cells Few (Few) /hpf Urine Bacteria 3+ H /hpf Urine Casts 0-2 Influenza A (RT-PCR) Negative (Negative) Influenza B (RT-PCR) Negative (Negative) RSV (RT-PCR) Negative (Negative) SARS-CoV-2 RNA (RT-PCR) Negative (Negative) Imaging Data Attestation: I personally reviewed and interpreted this imaging study as follows: Radiologist's impression: ITS Impressions Chest X-Ray 07/20/24 18:35 IMPRESSION: No active cardiopulmonary disease STAT RAD CT brain: No acute intracranial hemorrhage. No midline shift or mass effect. The territory of [place]-white matter differentiation is maintained throughout. Arachnoid cyst anterior to left temporal lobe. The ventricles and sulci are commensurate with age. STAT RAD CT chest/abdomen/pelvis: No pulmonary contusion or pneumothorax. No acute fractures. No pneumonia. No traumatic visceral injury. No acute fractures. ECG Data EKG #1: Attestation: I personally reviewed and interpreted this ECG as follows: ECG completion date: 07/20/24 ECG completion time: 17:46 tachycardia (124), sinus rhythm and non-specific ST changes Discharge Plan Discharge Clinical Impression: Headache Qualifiers: Headache type: unspecified Headache chronicity pattern: acute headache Intractability: not intractable Qualified Code(s): R51.9 - Headache, unspecified UTI (urinary tract infection) Qualifiers: Urinary tract infection type: acute cystitis Hematuria presence: with hematuria Qualified Code(s): N30.01 - Acute cystitis with hematuria Abdominal pain Qualifiers: Abdominal location: unspecified location Qualified Code(s): R10.9 - Unspecified abdominal pain Patient Disposition: Home, Self-Care Condition: Stable Instructions: Antibiotic Form, Acute Headache (ED), Viral Syndrome (ED), Abdominal Pain (ED) Additional Instructions: Take antibiotics as prescribed for urinary tract infection. It is possible you may have a viral upper respiratory infection. Utilize Tessalon Perles as needed for cough. Recommend [id number] cough and cold medicines as needed for symptom relief. Continue Tylenol and ibuprofen as needed for pain and/or fevers. Increase fluid intake. Recommend electrolyte rich fluids, gatorade, pedialyte, body armour. Recommend clear liquids or bland diet until symptoms improve, such as bananas, rice, applesauce, toast, or crackers. Follow up with your primary care doctor for further evaluation. Return to the ED if you experience worsening or severe symptoms, unable to keep down food or drink, severe pain, fevers, rectal bleeding, vomiting blood, passing out, severe dizziness, or any other symptoms of concern. Prescriptions: New cephalexin 500 mg capsule 500 mg PO Q6H 7 Days Qty: 28 0RF benzonatate 200 mg capsule 200 mg PO TID PRN (Reason: cough) Qty: 15 0RF No Action lisinopril-hydrochlorothiazide 10-12.5 mg tablet 1 tablet PO DAILY Qty: 90 1RF Wegovy 0.25 mg/0.5 mL pen injector 0.25 mg subcut WEEKLY Qty: 2 3RF Follow-up/Referrals: Marc Newell MD [Primary Care Provider] - Stand Alone Forms: Work/School Release IP Time of Disposition: 00:49
[2024-07-20 22:03] VITALS: BP 125/88; PULSE 113; RESP 22; TEMP 37.4; O2SAT 94
[2024-07-20] MEDS: ACETAMINOPHEN 500 MG TABLET 1000 MG PO (22:04)
[2024-07-20] MEDS: FAMOTIDINE 20 MG/2 ML VIAL IV PUSH (22:05)
[2024-07-20 22:06] LABS: Add Urine Microscopic? YES; Appearance Urine Cloudy (Clear); Bacteria Urine 3+ /hpf; Bilirubin Urine Negative (Negative); Blood Urine Negative (Negative); Color Urine Dark Yellow (Yellow); Glucose Urine UA Negative (Negative); Ketones Urine Trace mg/dL (Negative); Leukocyte Esterase Ur Trace LEU/UL (Negative); Need Manual Microscopic Reviewed; Nitrate Urine Negative (Negative); Non Pathogenic Casts 0-2; Protein Urine Trace mg/dL (Negative); Specific Grav Ur 1.034 (1.001-1.035); Squamous Epithelial Cell Urine Few /hpf (Few); pH Urine 6.5 (5.0-9.0)
[2024-07-20] MEDS: SODIUM CHLORIDE 0.9% IV 1,000 ML 999 ML IV CONT (22:06)
[2024-07-20 22:26] LABS: Troponin I < 0.012 ng/mL (0.000-0.034)
[2024-07-20 23:28] LABS: Lactic Acid Reflex 0.9 mmol/L (0.7-2.0)
[2024-07-21] MEDS: CEPHALEXIN 500 MG CAPSULE PO (00:14)
[2024-07-21] MEDS: SODIUM CHLORIDE 0.9% IV 1,000 ML 999 ML IV CONT (00:14)
[2024-07-21] MEDS: KETOROLAC 30 MG/ML VIAL (*BKC) IV PUSH (00:14)
[2024-07-21 00:18] VITALS: BP 127/86; PULSE 111; RESP 19; O2SAT 97
[2024-07-21 00:43] VITALS: PULSE 91
[2024-07-21 01:13] VITALS: BP 133/82; PULSE 101; RESP 18; O2SAT 97
== END 2024-07-21 01:17 | disposition home or self-care (01) ==
PROVIDERS: Student in an Organized Health Care Education/Training Program; Emergency Provider Physician Assistant; PCP Family Medicine
DX: R51.9 Headache, unspecified (principal); N30.01 Acute cystitis with hematuria; R10.9 Unspecified abdominal pain; Z20.822 Contact with and (suspected) exposure to COVID-19; F17.210 Nicotine dependence, cigarettes, uncomplicated; E66.01 Morbid (severe) obesity due to excess calories; Z68.42 Body mass index [BMI] 45.0-49.9, adult; R00.0 Tachycardia, unspecified
CPT/HCPCS: 36415; 70450; 71046; 71260; 74177; 80053; 81001; 83605; 83690; 84484; 85025; 87086; 87637; 93005; 96361; 96374; 99284; A9270; J1885; J7030; Q9967

== ENCOUNTER 2024-10-22 13:59 | Emergency (ER) | payer OTHER, SELFPAY ==
--- NOTE | ~2024-10-22 | CT_ITS ---
EXAMINATION: CTA brain carotid DATE: 10/22/2024 16:34 INDICATION: Headache and dizziness. TECHNIQUE: Computed tomographic angiography (CTA) of the head was performed without and with 100 mL O mnipaque-350 intravenous contrast. CTA of the neck was performed with intravenous contrast. Automated exposure control and iterative reconstruction technique were employed. The dose-length product was 1 895.27 mGy-cm. Maximum intensity projection and volume rendered 3D-reconstructions were created by karyn amezcua technologist on a separate workstation. COMPARISON: Head CT 07/20/2024 FINDINGS: HEAD CTA: There is no intracranial hemorrhage, acute infarction, or abnormal intracranial mass lesion . There is an empty sella. There is a 3.0 x 2.9 cm arachnoid cyst anterosuperior to left temporal lob e. The ventricles are normal in size. There is mucosal thickening in the paranasal sinuses. The orbit s are normal. The mastoid air cells are normal. The vertebral arteries are codominant. There is no si gnificant stenosis of basilar artery or the posterior cerebral arteries. There is no significant sten osis of the intracranial internal carotid arteries or anterior or middle cerebral arteries. Anterior communicating artery is normal. The posterior communicating arteries are normal. There is no aneurysm . NECK CTA: There are no pathologically enlarged lymph nodes. The vertebral arteries are normal. There is no visible plaque in the proximal internal carotid arteries. There is 0% stenosis of the proximal right internal carotid artery relative to normal distal artery lumen diameter (NASCET criteria). Ther e is 0% stenosis of the proximal left internal carotid artery relative to normal distal artery lumen diameter. There is mild cervical kyphosis. IMPRESSION: 1. No etiology for the patient's symptoms. 2. Normal arteries. Reviewed, dictated and finalized at location B.
--- NOTE | ~2024-10-22 | XR_ITS ---
CHEST RADIOGRAPH CLINICAL HISTORY: pre-syncope . COMPARISON: 07/20/2024 TECHNIQUE: Single portable view of the chest. FINDINGS The cardiomediastinal silhouette is unremarkable. The lungs are clear. Visualized osseous structures and soft tissues are unremarkable. IMPRESSION: No focal infiltrate or effusion. Reviewed, dictated and finalized at location A.
[2024-10-22 14:00] VITALS: BP 144/80; PULSE 90; RESP 19; TEMP 36.4; O2SAT 98
--- NOTE | 2024-10-22 14:05 | ECG_ITS ---
Test Date: 2024-10-22 14:10:05 Measurements Intervals [place] Rate: 89 P: 37 PA: 160 QRS: -28 QRSD: 102 T: 37 QT: 333 QTc: 407 Interpretive Statements SINUS RHYTHM BORDERLINE LEFT AXIS DEVIATION [QRS AXIS < -20] Compared to ECG 07/20/2024 17:46:07 Sinus tachycardia no longer present Electronically Signed On 10-23-2024 13:51:42 CDT by Richard Luevano M.D.
[2024-10-22 14:15] VITALS: BP 127/60; PULSE 96; RESP 29; TEMP 36.8; O2SAT 94
--- NOTE | 2024-10-22 15:26 | ED.SYNCOPE ---
HPI - Syncope General Chief Complaint: Dizziness Stated Complaint: dizziness, blurred vision, h/a Time Seen by Provider: 10/22/24 14:19 History of Present Illness HPI narrative: 34-year-old male with a past medical history including hypertension, hyperlipidemia, morbid obesity. Patient presents to the ER for evaluation of sudden-onset dizziness, blurred vision and headache. He had chiropractic manipulation of his head neck yesterday and today at work he started feeling presyncopal and severe dizziness where he was having room spinning sensations and lightheadedness. No passing out and he thought it might have been related to his blood pressure which was potentially elevated. This has happened to him once before without any concerns. He reports taking his hypertensive medications daily and is not missed any dosages. No chest pain, heart fluttering or palpitations sensations, shortness a breath, nausea, vomiting. No injury or trauma. No anticoagulation use. No neck pain or vision deficits. Related Data Allergies Allergy/AdvReac Type Severity Reaction Status Date / Time No Known Allergies Allergy Verified 10/22/24 14:05 Review of Systems Review of Systems: As [facility] Past Medical History Medical History Cough Need for lipid screening Morbid (severe) obesity due to excess calories No significant past medical history Surgical History Surgical History H/O laser assisted in situ keratomileusis History of hand surgery Family History Family History Father Acute myocardial infarction Mother Hypertension Hypothyroidism Sibling COVID-19 Sibling Diabetes mellitus Hypertension Social History Social History Smoking status: Light tobacco smoker Tobacco type: cigarettes Second hand tobacco smoke exposure: No Additional smoking assessment comments: 1 pack/month Alcohol intake: current Substance use: never Substance use type: does not use Do You Feel Safe in your Home?: Yes Lack of Transportation: No Lack of Food: Never True Current Housing: I Have Housing Concerned About Future Housing: No Difficulty Paying Gas/Electric Bills: No Difficulty Paying for Meds: No Currently Unemployed: No Education: High School Diploma/GED Difficulty w/ Childcare or Family Care: No Living arrangements: with family Occupation/Education: occupation 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 Mucous membranes moist. NECK: Supple. CHEST: [Clear to auscultation. No respiratory distress.] HEART: [Regular rate and rhythm]. No murmur heard. [Normal peripheral pulses.] ABDOMEN: [Soft, nondistended], [nontender], [No rigidity or guarding] EXTREMITIES: Normal range of motion. [No edema.] SKIN: Warm, dry, no rash. NEURO: [No focal deficits]. Alert and oriented [x3.] No nystagmus, no ataxia in the arms or legs, unremarkable neurological assessment. Normal strength and sensation throughout. Normal facies. Stroke scale 0. PSYCH: [Normal mood and affect.] Course Vital Signs Vital signs: Vital Signs Temperature 36.4 C 10/22/24 14:00 Pulse Rate 90 10/22/24 14:00 Respiratory Rate 19 10/22/24 14:00 Blood Pressure 144/80 H 10/22/24 14:00 Pulse Oximetry 98 10/22/24 14:00 Oxygen Delivery Room Air 10/22/24 14:00 Temperature 36.8 C 10/22/24 14:15 Pulse Rate 96 10/22/24 14:15 Respiratory Rate 29 H 10/22/24 14:15 Blood Pressure 127/60 10/22/24 14:15 Pulse Oximetry 94 10/22/24 14:15 Oxygen Delivery Room Air 10/22/24 14:00 MDM - Syncope MDM Narrative Medical decision making narrative: 34-year-old male presenting with sudden-onset presyncope, dizziness, blurred vision and headache. He had chiropractic manipulation of his head neck yesterday and his symptoms started today at lunch. Exam abdomen related to either the chiropractor or sudden changes in position. This has happened once before. He has a history of hypertension and takes lisinopril at home. Patient states his headache has slowly improved since he arrived to the ER but still feeling dizziness that is mild and persistent. Denies any lightheadedness at this time. No chest pain, palpitations, shortness of breath. No URI symptoms. No ear symptoms. Differential diagnosis includes vertigo, benign positional vertigo, Meniere syndrome, cardiac dysrhythmia, ACS, intracranial pathology such as stroke or vertebral artery or carotid artery dissection less likely but possible given his chiropractor manipulation recently. Workup was ordered including a CT of the head, CT angiography of the head neck, CBC, CMP, troponin, EKG and chest x-ray. Patient given meclizine and fluid bolus and re-evaluated. Workup shows no leukocytosis or anemia. Normal platelet count. Normal coagulation study. Electrolytes within normal limits, normal renal function panel, normal glucose, normal hepatic function panel. Negative troponin. Chest x-ray without any concerning findings. CT head and CT angiography of the head neck shows no findings consistent with patient's symptoms. Normal arteries. This is reassuring that he does not have any signs of dissection or occlusion and there is no stenosis of his arteries. EKG shows normal sinus rhythm, no signs of acute ischemic event. Patient was re-evaluated improvement. He is safe and stable for discharge home at this time. Will be given meclizine as needed if he has any persistent or recurrent symptoms. Medical Records Attestation: I reviewed the patient's medical records. Lab Data Attestation: I reviewed the patient's lab results. 10/22/24 15:30 10/22/24 15:30 Labs: Lab Results 10/22/24 Range/Units 15:30 WBC 8.7 (4.5-10.0) K/mm3 RBC 5.80 (4.6-6.20) M/mm3 Hgb 16.6 (14.0-18.0) g/dL Hct 49.0 (42.0-52.0) % MCV 84.5 (80-100) fl MCH 28.6 (26-34) pg MCHC 33.9 (32-36) g/dl RDW 14.0 (11.5-14.5) % Plt Count 278 (150-375) k/mm3 MPV 9.5 (7.4-10.4) fl Immature Gran % (Auto) 0.2 (0-0.5) % Neut % (Auto) 71.8 (45.5-73.1) % Lymph % (Auto) 20.2 (18.3-44.2) % [place] % (Auto) 5.4 (2.6-8.5) % Eos % (Auto) 2.1 (0-4.4) % Baso % (Auto) 0.3 (0.2-1.2) % Lymph # (Auto) 1.76 (0.9-3.2) K/mm3 [place] # (Auto) 0.5 (0.1-0.6) K/mm3 Eos # (Auto) 0.2 (0-0.3) K/mm3 Baso # (Auto) 0.0 (0.0-0.1) K/mm3 Abs Immat Gran (auto) 0.02 (0.00-0.031) K/mm3 Absolute Neuts (auto) 6.3 (1.3-6.7) K/mm3 Absolute Nucleated RBC 0.000 (0.0-0.012) K/mm3 Nucleated RBC % 0.0 (0.0-0.2) % PT 13.3 (11.1-14.7) Seconds INR 1.0 APTT 28.2 (22.3-36.8) Seconds Sodium 138 (137-145) mmol/L Potassium 3.7 (3.4-5.0) mmol/L Chloride 104 (98-107) mmol/L Carbon Dioxide 21 L (22-30) mmol/L Anion Gap 13 H (4-12) mmol/L BUN 19 (9-20) mg/dL Creatinine 1.23 (0.7-1.3) mg/dL Estim Creat Clear Calc 119 ml/min Estimated GFR > 60 (59 - ) Glucose 140 H (65-110) mg/dL Calcium 8.9 (8.4-10.2) mg/dL Total Bilirubin 0.6 (0.2-1.3) mg/dL AST 33 (17-59) U/L ALT 48 (6-50) U/L Alkaline Phosphatase 82 (38-126) U/L Troponin I < 0.012 (0.000-0.034) ng/mL Total Protein 7.0 (6.3-8.2) g/dL Albumin 4.3 (3.5-5.1) g/dL Imaging Data Attestation: I personally reviewed and interpreted this imaging study as follows: My impression: Impressions Chest X-Ray 10/22/24 15:50 IMPRESSION: No focal infiltrate or effusion. Head/Neck CTA 10/22/24 16:37 IMPRESSION: 1. No etiology for the patient's symptoms. 2. Normal arteries. ECG Data EKG #1: Attestation: I personally reviewed and interpreted this ECG as follows: ECG completion date: 10/22/24 ECG completion time: 14:10 Prior ECG tracings: available for review Interpretation: Regular rate, leftward deviated axis, no ectopy. QTC 407, QRS 102, NM interval 160. No ST segment elevations, depressions or inversions. Overall final interpretation normal sinus rhythm. No interval change compared to previous EKG. Discharge Plan Discharge Clinical Impression: Benign paroxysmal positional vertigo Patient Disposition: Home, Self-Care Condition: Stable Instructions: Antibiotic Form, Benign Paroxysmal Positional Vertigo (ED), Dizziness (ED) Additional Instructions: Your workup appears very reassuring, your cardiac enzymes undetectable, your CT scans shows no findings or any concerning features in your head or neck. The arteries are patent, no signs of dissection, aneurysm or occlusion. Your symptoms are very consistent with positional vertigo. We will send you home with meclizine which is an as-needed medication that can help with the symptoms if they were to recur. Call your doctor in the morning for a follow-up visit. Return with any new or worsening concerns at any time. Patient Language: Surinamese Prescriptions: New meclizine 25 mg tablet 25 mg PO TID PRN (Reason: dizziness) 10 Days Qty: 30 0RF No Action lisinopril-hydrochlorothiazide 10-12.5 mg tablet 1 tablet PO DAILY Qty: 90 1RF Wegovy 1 mg/0.5 mL pen injector 1 mg subcut Q7D Qty: 2 0RF Follow-up/Referrals: Marc Newell MD [Primary Care Provider] - Time of Disposition: 18:59
[2024-10-22] MEDS: SODIUM CHLORIDE 0.9% IV 1,000 ML 999 ML IV CONT (15:30)
[2024-10-22] MEDS: MECLIZINE HCL 25 MG TABLET PO (15:30)
[2024-10-22 15:40] LABS: Basophils Percent Auto 0.3 % (0.2-1.2); Eosinophils Absolute Auto 0.2 K/mm3 (0-0.3); Eosinophils Percent Auto 2.1 % (0-4.4); Hemoglobin 16.6 g/dL (14.0-18.0); Immature Granulocyte Absolute 0.02 K/mm3 (0.00-0.031); Immature Granulocyte Percent A 0.2 % (0-0.5); Lymphocytes Absolute Auto 1.76 K/mm3 (0.9-3.2); Lymphocytes Percent Auto 20.2 % (18.3-44.2); Mean Corpuscular HGB Conc 33.9 g/dl (32-36); Mean Corpuscular Hemoglobin 28.6 pg (26-34); Mean Corpuscular Volume 84.5 fl (80-100); Mean Platelet Volume 9.5 fl (7.4-10.4); Monocytes Absolute Auto 0.5 K/mm3 (0.1-0.6); Monocytes Percent Auto 5.4 % (2.6-8.5); Neutrophils Absolute Auto 6.3 K/mm3 (1.3-6.7); Neutrophils Percent Auto 71.8 % (45.5-73.1); Platelet Count Result 278 k/mm3 (150-375); White Blood Count 8.7 K/mm3 (4.5-10.0)
--- OUTSIDE RECORDS SUMMARY | 2024-10-22 15:46 | XMS_ITS | Clinical Summary ---
Author Organization [facility] Address [address] [place] [address] Care Team Providers Care Metal Cut Off Saw Tender Name Role Phone Marc Newell MD Primary Care Provider [phone] Allergies No known active allergies Medications lisinopril-hydr oCHLOROthiazide (ZESTORETIC) 20-25 mg per tabletIndicatio ns:hypertension Take 1 tablet by mouth daily 30 tablet 3 Active meclizine (ANTIVERT) 25 mg tablet Take 1 tablet (25 mg total) by mouth 3 (three) times a day as needed for dizziness 30 tablet 3 Active Medical History Medical History Date Comments HTN (hypertension) Social History Tobacco Use Types Packs/Day Years Used Date Smoking Tobacco: Every Day Cigarettes Tobacco Cessation:Ready to Q uit: Not Asked; Counseling Given: Not Answered Alcohol Use Standard Drinks/Week Comments Yes 1 (1 standard drink = 0.6 oz pur e alcohol) socially Personal Safety Answer Date Recorded Getting School Help Needed Not on file 05/01 Sex and Gender Information Value Date Recorded Sex Assigned at Not on file 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 Gender Identity Not on file Sexual Orientation Not on file Obstetrics History Last Filed Vital Signs Vital Sign Reading Time Taken Comments Blood Pressure 110/60 04/26/2023 3:00 PM CDT Pulse 70 04/26/2023 3:00 PM CDT Temperature 36.8 C (98.2 F) 04/26/2023 1:16 PM CDT Respiratory Rate 13 04/26/2023 3:00 PM CDT Oxygen Saturation 98% 04/26/2023 3:00 PM CDT Inhaled Oxygen Concentration - - Weight 157 kg (346 lb 2 oz) 04/26/2023 1:16 PM C DT Height - - Body Mass Index - - Plan of Treatment Health Maintenance Due Date Last Done Comments Depression Screening 1990 Hepatitis C Screening 1990 DTaP/Tdap/Td Vaccine (1 - Tdap) 2001 Varicella Vaccines (1 of 2 - 13+ 2-dose series) 2003 Hepatitis B Screening 2008 Regular Well Visit/Exam 18-64 2008 Pneumococcal vaccine <65 (1 of 2 - PCV) 2009 Influenza Vaccine (#1) 2024 HPV Vaccines Aged Out No longer eligi ble based on patient's age to complete this topic Insurance [facility] C[employer] HE[employer] PLAN Care Teams Metal Cut Off Saw Tender Relationship Specialty Start Date End Date Marc Newell MD PCP - General Family Medicine 04/26/23
--- OUTSIDE RECORDS SUMMARY | 2024-10-22 15:46 | XMS_ITS | Clinical Summary ---
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 Gender Identity Not on file Sexual Orientation Not on file Plan of Treatment Health Maintenance Due Date Last Done Comments Hepatitis C Virus (HCV) Screening 1990 TdaP Immunization 1990 Hepatitis B Immunization (1 of 3 - 19+ 3-dose series) 2009 Influenza Immunization (#1) 2024 SARS-COV-2 Immunization ( - 2023- season) 2024 Respiratory Syncytial Virus (RSV) Immunization (Adult) (1 - 1-dose 75+ series) 2065 Meningococcal Immunization (ACWY) Aged Out No longer eligible based on patient's age to complete this topic Pneumococcal Immunization Combined Aged Out No longer eligible based on patient's age to complete this topic Rotavirus Immunization Aged Out No lo nger eligible based on patient's age to complete this topic
--- OUTSIDE RECORDS SUMMARY | 2024-10-22 15:46 | XMS_ITS | CONTINUITY OF CARE DOCUMENT ---
Author Name bola plaza Address Unknown Organization [facility] Address [id number] [place] [address] [address] [place] [address] Phone [phone] Care Team Providers Care Link Knitting Machine Operator Name Role Phone bola plaza Unavailable Unavailable INSURANCE PROVIDERS Payer name Policy type / Coverage type Juan José red libertarian ID COVCHANDRAKANT- OPEN ACCESS/PPO Other [id number]
--- OUTSIDE RECORDS SUMMARY | 2024-10-22 15:46 | XMS_ITS | Referral Summary ---
Author Organization 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
[2024-10-22 15:50] LABS: Alanine Aminotransferase 48 U/L (6-50); Albumin Level 4.3 g/dL (3.5-5.1); Alkaline Phosphatase 82 U/L (38-126); Anion Gap 13 mmol/L (4-12); Aspartate Amino Transferase 33 U/L (17-59); Bilirubin,Total 0.6 mg/dL (0.2-1.3); Blood Urea Nitrogen 19 mg/dL (9-20); Calcium 8.9 mg/dL (8.4-10.2); Carbon Dioxide 21 mmol/L (22-30); Chloride 104 mmol/L (98-107); Estimated CRCL calculation 119 ml/min; Estimated Glomerular Filt Rate > 60; Glucose 140 mg/dL (65-110); Potassium 3.7 mmol/L (3.4-5.0); Prothrombin Time 13.3 Seconds (11.1-14.7); Sodium 138 mmol/L (137-145)
[2024-10-22 15:51] LABS: Partial Thromboplastin Time 28.2 Seconds (22.3-36.8)
[2024-10-22 16:01] LABS: Troponin I < 0.012 ng/mL (0.000-0.034)
--- OUTSIDE RECORDS SUMMARY | 2024-10-22 16:34 | XMS_ITS | Clinical Summary ---
Author Organization 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
--- OUTSIDE RECORDS SUMMARY | 2024-10-22 16:34 | XMS_ITS | Clinical Summary ---
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
--- OUTSIDE RECORDS SUMMARY | 2024-10-22 16:34 | XMS_ITS | Referral Summary ---
Author Organization [facility] Address [address] [place] [address] Care Team Providers Care Associate Director Data & Analytics Name Role Phone Marc Newell MD Primary Care Provider [phone] Allergies No known active allergies Medications lisinopril-hydr [...] on file Legal Sex Male 4:00 PM FORENSIC ANTHROPOLOGIST Gender Identity Not on file Sexual Orientation [...] Plan of Treatment Not on file Insurance [facility] CORE HE[employer] PLAN [facility] HMO/PPO Address: [facility] [address] [place] [address] Care Teams Associate Director Data & Analytics Relationship Specialty Start Date End Date Marc Newell MD PCP - General Family Medicine 04/26/23
--- OUTSIDE RECORDS SUMMARY | 2024-10-22 16:34 | XMS_ITS | CONTINUITY OF CARE DOCUMENT ---
Author Name bola plaza Address Unknown Organization [facility] Address [address] [place] [address] [address] [place] [address] Phone [phone] Care Team Providers Care Computer Support Technician Name Role Phone bola plaza Unavailable Unavailable INSURANCE PROVIDERS Payer name Policy type / Coverage type Juan José red libertarian ID COVCHANDRAKANT- OPEN ACCESS/PPO Other [id number]
[2024-10-22 19:24] VITALS: BP 132/84; PULSE 87; RESP 18; O2SAT 100
== END 2024-10-22 19:26 | disposition home or self-care (01) ==
PROVIDERS: Emergency Provider Student in an Organized Health Care Education/Training Program; PCP Family Medicine
DX: H81.10 Benign paroxysmal vertigo, unspecified ear (principal); I10 Essential (primary) hypertension; E78.5 Hyperlipidemia, unspecified; E66.01 Morbid (severe) obesity due to excess calories; Z68.42 Body mass index [BMI] 45.0-49.9, adult; F17.210 Nicotine dependence, cigarettes, uncomplicated; Z79.899 Other long term (current) drug therapy
CPT/HCPCS: 36415; 70496; 70498; 71045; 80053; 84484; 85025; 85610; 85730; 93005; 96360; 99284; A9270; J7030; Q9967

== ENCOUNTER 2025-02-21 16:50 | Emergency (ER) | payer OTHER, SELFPAY ==
--- NOTE | ~2025-02-21 | CT_ITS ---
CT abdomen pelvis wo con Ordering provider: Vivek Reina APRN History: 34 years Male with . bilat flank/abd pain . Comparison: None. Technique: CT abdomen and pelvis with IV and without oral contrast. Automated exposure control and it erative reconstruction technique were employed. The dose-length product was 1358.92 mGy-cm. Findings: VISUALIZED LOWER CHEST: Normal. UPPER ABDOMINAL ORGANS: Liver: Normal. Gallbladder: Contracted. Spleen: Normal. Stomach/duodenum: Normal. Pancreas: Normal. Adrenals: Slightly prominent medial limb of the left adrenal gland is seen. No follow-up advised unle ss clinically warranted. Kidneys: Tiny soft tissue density seen in the left kidney lower pole measuring 1 cm. Follow-up advise d. Cyst is seen in the left kidney upper pole measuring 3.6 cm. Hyperdense area seen also in the right kidney midpole measuring 8 mm which may be hemorrhagic cyst. U ltrasound evaluation for both kidneys is advised. PELVIC ORGANS: The bladder is underfilled. Slightly thickened wall is seen. Evaluation for cystitis a dvised. BOWEL AND MESENTERY: Colon: No evidence of diverticulitis. Normal appendix. Small Bowel: Normal. No obstruction. Peritoneum/mesentery: No free air or free fluid. No mesenteric lymphadenopathy. RETROPERITONEUM: Normal aorta. No retroperitoneal lymphadenopathy. Small para-aortic lymph nodes wi th fat stranding is seen. MUSCULOSKELETAL: Superficial soft tissues: Small right inguinal fat containing hernia is seen. The superficial soft ti ssues are normal. Bones: Age appropriate degenerative changes of the spine. Left sacroiliitis. Mild bilateral hip osteoarthritic changes. IMPRESSION: 1. No evidence of appendicitis, diverticulitis or intestinal obstruction. 2. Bilateral kidney lesions. Ultrasound evaluation advised. 3. No definite stones seen bilaterally in the kidneys. Reviewed, dictated and finalized at location A.
--- NOTE | ~2025-02-21 | US_ITS ---
US renal BI Ordering provider: Vivek Reina APRN History: . left renal cyst, right hypodense renal mass/cyst . Comparison: None. Technique: Ultrasound bilateral kidneys. Findings: RIGHT KIDNEY: Measures 12.1x 8.2x 6 cm in length which is normal in size. No renal cysts. No renal ma ss or visualized echogenic stones. Otherwise, normal echotexture and contour. No hydronephrosis. Norm al renal cortical thickness. LEFT KIDNEY: Measures 12.4x 6.4x 5.4 cm in length which is normal in size. Superior pole cyst measuri ng 2.6 x 3.4 x 2.9 cm. No renal mass or visualized echogenic stones. Otherwise, normal echotexture an d contour. No hydronephrosis. Normal renal cortical thickness. BLADDER: Underfilled. The volume is 11 ml. Ureteral jets were not seen bilaterally. IMPRESSION: Left renal cyst. Otherwise, normal appearances. Reviewed, dictated and finalized at location A.
--- OUTSIDE RECORDS SUMMARY | 2025-02-21 16:52 | XMS_ITS | Clinical Summary ---
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
[2025-02-21 16:55] VITALS: BP 149/83; PULSE 87; RESP 20; TEMP 36.7; O2SAT 95
--- NOTE | 2025-02-21 17:28 | ED_ITS ---
HPI - Abdominal Pain General Chief Complaint: Abdominal Pain Stated Complaint: bilateral flank pain and abd. pain Time Seen by Provider: 02/21/25 16:58 Source: patient Mode of arrival: ambulatory Limitations: no limitations History of Present Illness HPI narrative: 34 y/o HM in the ED for c/o bilateral flank, back, abdominal pain and diarrhea X3 days. Pt states the right flank pain has been going on for months, seen in the ED and dx with UTI and generalized abdominal pain, never got better w/ treatment. Pt states flank pain worse w/ movement. Pt states 2-3 loose BMs over the last 2-3 days. Pt states abd pain is most related to the flanks then the abd in general. Pt denies fevers, chills, CP, SOB, N/V, dysuria, hematuria, polyuria. Pt currently taking Wegovy w/o issue, denies working out more than normal, using only a treadmill once a week. Related Data Allergies Allergy/AdvReac Type Severity Reaction Status Date / Time No Known Allergies Allergy Verified 02/21/25 16:59 Review of Systems 2 Review of Systems: CONSTITUTIONAL: Denies fever, chills, or sweats. EYES: Denies visual changes, redness, or discharge. ENT: Denies rhinorrhea, congestion, sore throat, or otalgia. CARDIOVASCULAR: Denies chest pain, palpitations, or edema. RESPIRATORY: Denies cough or dyspnea. GASTROINTESTINAL: Endorses abdominal and flank pain, diarrhea. Denies nausea, vomiting. GENITOURINARY: Denies dysuria or hematuria. SKIN: Denies rash or itching. MUSCULOSKELETAL: Endorses back pain. Denies joint pain, or myalgia. NEUROLOGIC: Denies headache, numbness, or weakness. PSYCHIATRIC: Denies anxiety or depression. [facility] Past Medical History Medical History Cough Need for lipid screening Morbid (severe) obesity due to excess calories No significant past medical history Surgical History Surgical History H/O laser assisted in situ keratomileusis History of hand surgery Family History Family History Father Acute myocardial infarction Mother Hypertension Hypothyroidism Sibling COVID-19 Sibling Diabetes mellitus Hypertension Social History Social History Smoking status: Light tobacco smoker Tobacco type: cigarettes Second hand tobacco smoke exposure: No Additional smoking assessment comments: 1 pack/month Alcohol intake: current Substance use: never Substance use type: does not use Do You Feel Safe in your Home?: Yes Lack of Transportation: No Lack of Food: Never True Current Housing: I Have Housing Concerned About Future Housing: No Difficulty Paying Gas/Electric Bills: No Difficulty Paying for Meds: No Currently Unemployed: No Education: High School Diploma/GED Difficulty w/ Childcare or Family Care: No Living arrangements: with family Occupation/Education: occupation 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 HEAD: Normocephalic, atraumatic. EYES: PERRLA and EOMI. ENT: Nares clear, no rhinorrhea or epistaxis. Mucous membranes moist. NECK: Supple. CHEST: Clear to auscultation. No respiratory distress. HEART: Regular rate and rhythm. No murmur heard. Normal peripheral pulses. ABDOMEN: Soft, nontender, nondistended, normal active bowel sounds. Pain on palpation of bilateral flanks Back: CVA tenderness to left back, normal to right EXTREMITIES: Normal range of motion. No edema. SKIN: Warm, dry, no rash. NEURO: No focal deficits. Alert and oriented x3. PSYCH: Normal mood and affect. Course Vital Signs Vital signs: Vital Signs Temperature 36.7 C 02/21/25 16:55 Pulse Rate 87 02/21/25 16:55 Respiratory Rate 20 02/21/25 16:55 Blood Pressure 149/83 H 02/21/25 16:55 Pulse Oximetry 95 02/21/25 16:55 Oxygen Delivery Room Air 02/21/25 16:55 Temperature 36.7 C 02/21/25 16:55 Pulse Rate 83 02/21/25 18:38 Respiratory Rate 18 02/21/25 18:38 Blood Pressure 112/66 02/21/25 18:38 Pulse Oximetry 97 02/21/25 18:38 Oxygen Delivery Room Air 02/21/25 16:55 MDM - Abdominal Pain MDM Narrative Medical decision making narrative: All blood and urine labs within normal limits. CT results as followed per radiologist read. Ultrasound ordered with noted renal cyst per Radiology read. Patient be discharged with follow-up primary care, potential renal consult, and diagnosed musculoskeletal pain. Differential Diagnosis Differential diagnosis: Likely abdominal pain, acute appendicitis, calculus of kidney and gastroenteritis Medical Records Attestation: I reviewed the patient's medical records. Lab Data Attestation: I reviewed the patient's lab results. 02/21/25 17:25 02/21/25 17:25 Labs: Lab Results 02/21/25 02/21/25 Range/Units 17: 17:25 WBC 9.6 (4.5-10.0) K/mm3 RBC 5.77 (4.6-6.20) M/mm3 Hgb 16.3 (14.0-18.0) g/dL Hct 48.7 (42.0-52.0) % MCV 84.4 (80-100) fl MCH 28.2 (26-34) pg MCHC 33.5 (32-36) g/dl RDW 13.7 (11.5-14.5) % Plt Count 247 (150-375) k/mm3 MPV 9.0 (7.4-10.4) fl Immature Gran % (Auto) 0.4 (0-0.5) % Neut % (Auto) 76.1 H (45.5-73.1) % Lymph % (Auto) 16.7 L (18.3-44.2) % [place] % (Auto) 4.7 (2.6-8.5) % Eos % (Auto) 1.7 (0-4.4) % Baso % (Auto) 0.4 (0.2-1.2) % Lymph # (Auto) 1.60 (0.9-3.2) K/mm3 [place] # (Auto) 0.5 (0.1-0.6) K/mm3 Eos # (Auto) 0.2 (0-0.3) K/mm3 Baso # (Auto) 0.0 (0.0-0.1) K/mm3 Abs Immat Gran (auto) 0.04 H (0.00-0.031) K/mm3 Absolute Neuts (auto) 7.3 H (1.3-6.7) K/mm3 Absolute Nucleated RBC 0.000 (0.0-0.012) K/mm3 Nucleated RBC % 0.0 (0.0-0.2) % Sodium 138 (137-145) mmol/L Potassium 3.4 (3.4-5.0) mmol/L Chloride 107 (98-107) mmol/L Carbon Dioxide 21 L (22-30) mmol/L Anion Gap 10 (4-12) mmol/L BUN 18 (9-20) mg/dL Creatinine 0.99 (0.7-1.3) mg/dL Estim Creat Clear Calc 140 ml/min Estimated GFR > 60 (59 - ) Glucose 117 H (65-110) mg/dL Calcium 8.9 (8.4-10.2) mg/dL Total Bilirubin 0.4 (0.2-1.3) mg/dL AST 31 (17-59) U/L ALT 34 (6-50) U/L Alkaline Phosphatase 65 (38-126) U/L Troponin I < 0.012 (0.000-0.034) ng/mL Total Protein 7.2 (6.3-8.2) g/dL Albumin 4.1 (3.5-5.1) g/dL Lipase Cancelled 57 Urine Color Yellow (Yellow) Urine Appearance Clear (Clear) Urine pH 5.5 (5.0-9.0) Ur Specific [place] 1.018 (1.001-1.035) Urine Protein Negative (Negative) mg/dL Urine Glucose (UA) Negative (Negative) mg/dL Urine Ketones Negative (Negative) mg/dL Ur Blood (Man) Negative (Negative) Urine Nitrate Negative (Negative) Urine Bilirubin Negative (Negative) Urine Urobilinogen 0.2 (<2.0) mg/dL Leukocyte Esterase Rfl Negative (Negative) RICKIE/UL ITS Impressions Abdomen/Pelvis CT 02/21/25 18:22 IMPRESSION: 1. No evidence of appendicitis, diverticulitis or intestinal obstruction. 2. Bilateral kidney lesions. Ultrasound evaluation advised. 3. No definite stones seen bilaterally in the kidneys. Imaging Data Radiologist's impression: ITS Impressions Abdomen/Pelvis CT 02/21/25 18:22 IMPRESSION: 1. No evidence of appendicitis, diverticulitis or intestinal obstruction. 2. Bilateral kidney lesions. Ultrasound evaluation advised. 3. No definite stones seen bilaterally in the kidneys. Renal Ultrasound 02/21/25 20:20 IMPRESSION: Left renal cyst. Otherwise, normal appearances. ITS Impressions Abdomen/Pelvis CT 02/21/25 18:22 IMPRESSION: 1. No evidence of appendicitis, diverticulitis or intestinal obstruction. 2. Bilateral kidney lesions. Ultrasound evaluation advised. 3. No definite stones seen bilaterally in the kidneys. Discharge Plan Discharge Clinical Impression: Renal cyst, Musculoskeletal pain Patient Disposition: Home Condition: Stable Instructions: Antibiotic Form, Musculoskeletal Pain (ED), Flank Pain (ED), Kidney Cyst (ED) Additional Instructions: Take OTC Tylenol 1000mg 3X a day. Also can take 800mg Motrin 3X a day or Aleve 440mg twice a day. Discussed heat to area, isometric exercises, and rest. Follow-up w/ your PCP regarding current issues and renal cyst. Return to the ED if fevers, chills, worsening abdominal pain, or blood in your urine or stool. Patient Language: Guamanian Prescriptions: No Action sildenafil [Viagra] 50 mg tablet 50 mg PO DAILY PRN (Reason: sexual activity) Qty: 20 1RF Rx Instructions: administer 30 minutes to 4 hours before activity lisinopril-hydrochlorothiazide 10-12.5 mg tablet 1 tablet PO DAILY Qty: 90 1RF Wegovy 2.4 mg/0.75 mL pen injector 2.4 mg subcut WEEKLY Qty: 3 6RF Rx Instructions: start week 17 of therapy Follow-up/Referrals: Marc Newell MD [Primary Care Provider] - 1 Week
[2025-02-21 17:32] LABS: Add Urine Microscopic? NO; Appearance Urine Clear (Clear); Glucose Urine UA Negative (Negative); Hematocrit 48.7 % (42.0-52.0); Hemoglobin 16.3 g/dL (14.0-18.0); Immature Granulocyte Percent A 0.4 % (0-0.5); Leukocyte Esterase Ur Negative LEU/UL (Negative); Lymphocytes Absolute Auto 1.60 K/mm3 (0.9-3.2); Mean Corpuscular HGB Conc 33.5 g/dl (32-36); Mean Corpuscular Hemoglobin 28.2 pg (26-34); Mean Corpuscular Volume 84.4 fl (80-100); Nitrate Urine Negative (Negative); Nucleated Red Blood Cells Absolute Auto 0.000 K/mm3 (0.0-0.012); Nucleated Red Blood Cells Perc 0.0 % (0.0-0.2); Platelet Count Result 247 k/mm3 (150-375); Red Blood Count 5.77 M/mm3 (4.6-6.20); Specific Grav Ur 1.018 (1.001-1.035); White Blood Count 9.6 K/mm3 (4.5-10.0)
[2025-02-21 17:41] LABS: Alanine Aminotransferase 34 U/L (6-50); Albumin Level 4.1 g/dL (3.5-5.1); Alkaline Phosphatase 65 U/L (38-126); Anion Gap 10 mmol/L (4-12); Aspartate Amino Transferase 31 U/L (17-59); Bilirubin,Total 0.4 mg/dL (0.2-1.3); Blood Urea Nitrogen 18 mg/dL (9-20); Calcium 8.9 mg/dL (8.4-10.2); Carbon Dioxide 21 mmol/L (22-30); Chloride 107 mmol/L (98-107); Estimated CRCL calculation 140 ml/min; Estimated Glomerular Filt Rate > 60; Glucose 117 mg/dL (65-110); Lipase 57 U/L (23-300); Potassium 3.4 mmol/L (3.4-5.0); Sodium 138 mmol/L (137-145); Total Protein 7.2 g/dL (6.3-8.2)
--- OUTSIDE RECORDS SUMMARY | 2025-02-21 17:50 | XMS_ITS | Clinical Summary ---
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
[2025-02-21 18:05] LABS: Troponin I < 0.012 ng/mL (0.000-0.034)
[2025-02-21] MEDS: KETOROLAC 30 MG/ML VIAL (*BKC) IV PUSH (18:33)
[2025-02-21 18:38] VITALS: BP 112/66; PULSE 83; RESP 18; O2SAT 97
== END 2025-02-21 20:43 | disposition home or self-care (01) ==
PROVIDERS: Emergency Provider Registered Nurse Emergency; PCP Family Medicine
DX: N28.1 Cyst of kidney, acquired (principal); R10.9 Unspecified abdominal pain; E66.01 Morbid (severe) obesity due to excess calories; Z68.41 Body mass index [BMI] 40.0-44.9, adult; F17.210 Nicotine dependence, cigarettes, uncomplicated; Z79.899 Other long term (current) drug therapy
CPT/HCPCS: 36415; 74176; 76775; 80053; 81003; 83690; 84484; 85025; 96374; 99284; J1885

== ENCOUNTER 2025-07-07 19:03 | Emergency (ER) | payer OTHER, SELFPAY ==
[2025-07-07 19:22] VITALS: BP 157/100; PULSE 91; RESP 14; TEMP 36.8; O2SAT 99
[2025-07-07 20:41] VITALS: BP 172/102; PULSE 80; RESP 14; O2SAT 95
--- OUTSIDE RECORDS SUMMARY | 2025-07-07 21:05 | XMS_ITS | Patient Health Record ---
Author Organization [facility] Address [address] [facility] [address] [place] [address] Care Team Providers Care Residential Care Officer Name Role Phone Dennis Bravo Unavailable [phone] Reason For Referral No Information Medications Medication SIG (Take, Route, Frequency, Duration) Notes Start Date End Date Status Lisinopril-hydroCHLOROthiazi de 10-12.5 MG Tablet Oral 03/31/2022 Active hydroCHLOROthiazide 12.5 MG Tablet Oral 03/31/2022 Active Immunizations Vaccine Route Administration Date Status Comme nts Vanessa Covid-19 Vaccine Unknown 10/19/2020 Administere d Vanessa Covid-19 Vaccine Unknown 08/15/2021 Administere d Pfizer Biontech Covid-19 Vac cine 2nd dose Unknown 11/07/2021 Administered Pfizer Biontech Covid-19 Vac cine 2nd dose Unknown 12/21/2021 Administered Social History Social History Additional Details Category Social Info Options Details Migrated Social History Migrated Social History Alcohol Intake: Occasional 03/31/2022,Tobacco Years: Former smoker 03/31/2022 Plan Of Treatment No Information Insurance Providers Payer Name Payer Address Payer Phone Subscriber Number Group Number Insured Name Patient Relationship to Insured Coverage Start Date Coverage End Date [facility] [address] [place] [phone] [id number] ERIC GRAYSON Self - patient is the insured
--- NOTE | 2025-07-07 21:32 | ED_ITS ---
HPI - Eye Problem General Chief complaint: Eye Problems Stated complaint: r eye injury. metal shaving Time Seen by Provider: 07/07/25 20:40 History of Present Illness HPI Narrative: Patient is a 35-year-old male who presents to the ER after sustaining an eye injury. 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 Patient believes a piece of wire wheel went in his eye. He reports he flushed the eye immediately afterwards but continues to experience irritation and pain. Patient endorses a history of high blood pressure but denies any other medical conditions pertinent to this ER visit. He denies any visual changes, blurry vision, pain with eye movement, or abnormal discharge. Related Data Allergies Allergy/AdvReac Type Severity Reaction Status Date / Time tizanidine AdvReac throat Verified 07/07/25 19:21 swelling Review of Systems Review of Systems: All systems reviewed & are unremarkable except as noted in HPI and below PMFSH Past Medical History Medical History Cough Need for lipid screening Morbid (severe) obesity due to excess calories No significant past medical history Surgical History Surgical History H/O laser assisted in situ keratomileusis History of hand surgery Family History Family History Father Acute myocardial infarction Mother Hypertension Hypothyroidism Sibling COVID-19 Sibling Diabetes mellitus Hypertension Social History Social History Smoking status: Light tobacco smoker Tobacco type: cigarettes Second hand tobacco smoke exposure: No Additional smoking assessment comments: 1 pack/month Alcohol intake: current Substance use: current Substance use type: marijuana Do You Feel Safe in your Home?: Yes Lack of Transportation: No Lack of Food: Never True Current Housing: I Have Housing Concerned About Future Housing: No Difficulty Paying Gas/Electric Bills: No Difficulty Paying for Meds: No Currently Unemployed: No Education: High School Diploma/GED Difficulty w/ Childcare or Family Care: No Living arrangements: with family Occupation/Education: occupation 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 HEAD: Normocephalic, atraumatic. PERRLA, mild redness around sclera Upon examination with fluorescin strip, tetracaine, and a Wood's Lamp, pt appears to have a small linear foreign body lateral to his pupil. NECK: Supple. No adenopathy, no masses. RESPIRATORY: Airway patent, respirations nonlabored. Clear to auscultation bilaterally, no rales, rhonchi, wheezing. CARDIOVASCULAR: Regular rate and rhythm without murmurs, rubs, or gallops. Peripheral pulses 2+ and equal bilaterally. ABDOMINAL: Soft, nontender, nondistended, no hepatosplenomegaly. Normoactive BS. MUSCULOSKELETAL: Moves all extremities. Strength/ROM intact without gross deformities. SKIN: Warm, dry, normal color. No rashes. NEURO: A&O X3. Speech clear. Cranial nerves II-XII intact. No ataxic movements. PSYCHIATRIC: Appropriate mood and affect. Normal interaction. Course Vital Signs Vital signs: Vital Signs Temperature 36.8 C 07/07/25 19:22 Pulse Rate 91 07/07/25 19:22 Respiratory Rate 14 07/07/25 19:22 Blood Pressure 157/100 H 07/07/25 19:22 Pulse Oximetry 99 07/07/25 19:22 Oxygen Delivery Room Air 07/07/25 19:22 Temperature 36.8 C 07/07/25 19:22 Pulse Rate 80 07/07/25 20:41 Respiratory Rate 14 07/07/25 20:41 Blood Pressure 172/102 H 07/07/25 20:41 Pulse Oximetry 95 07/07/25 20:41 Oxygen Delivery Room Air 07/07/25 20:41 MDM - Eye Problem MDM Narrative Medical decision making narrative: Patient is a 35-year-old male who presents to the ER after sustaining an eye injury. 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 Patient believes a piece of wire wheel went in his eye. He reports he flushed the eye immediately afterwards but continues to experience irritation and pain. Patient endorses a history of high blood pressure but denies any other medical conditions pertinent to this ER visit. He denies any visual changes, blurry vision, pain with eye movement, or abnormal discharge. Labs Ordered: None necessary Imaging Ordered: Wood's lamp examination Medications Ordered: Fluorescein strips, tetracaine drops, Polytrim eyedrops Results: Pt's initial eye exam under Wood's Lamp indicates a small, linear foreign body lateral to his R pupil, after 1L NS Kumar Lens flush pt's sclera is still red and irritated, but there is no longer a visible foreign body Diagnosis: conjunctival laceration Consults: ophthalmology (outpatient) Patient Education/Shared MDM: Results of examination shared with patient. He endorses improvement of symptoms following flush and Tetracaine medication administration. Patient strongly advised to follow-up with an mail clerk bills as soon as possible for re-evaluation. He will be discharged home with a prescription for optic antibiotic drops. Strict return precautions provided. Patient verbalized understanding and is in agreement with plan. Vital signs stable at time of discharge. All questions answered. Differential Diagnosis Differential diagnosis: Likely corneal abrasion, conjunctivitis, acute iritis, corneal ulcer and other (conjunctical laceration) Discharge Plan Discharge Clinical Impression: Laceration of right conjunctiva, Redness of eye, right, Foreign body in eye region Patient Disposition: Home Condition: Stable Instructions: Antibiotic Form, Eye Foreign Body (ED) Additional Instructions: Please return to the ER with any worsening symptoms. Follow-up with an mail clerk bills as soon as possible for further evaluation and treatment. Complete your full five days of eye antibiotic drops. Patient Language: Bahamian Prescriptions: New polymyxin B sulf-trimethoprim 10,000 unit- 1 mg/mL drops 1 drp EACH EYE Q3H 5 Days Qty: 10 0RF Rx Instructions: while awake; do not exceed 6 doses in 24 hours No Action Zepbound 5 mg/0.5 mL pen injector 5 mg subcut WEEKLY Qty: 2 3RF hydrochlorothiazide 12.5 mg tablet 12.5 mg PO QAM Qty: 90 1RF Follow-up/Referrals: Marc Newell MD [Primary Care Provider, Family Practice] Stand Alone Forms: Work/School Release IP Time of Disposition: 23:51
--- NOTE | 2025-07-07 22:36 | PC.NURSE ---
1L bag of N.S. used to irrigate eye with yifan lens. Verbal order given by MAGALI Tapia.
[2025-07-08 00:12] VITALS: BP 143/91; PULSE 86; RESP 15; O2SAT 100
[2025-07-08] MEDS: POLYMYXIN/TRIMETHOPRIM OPHTH 10 ML DROPS 1 DROP EACH EYE (00:16)
[2025-07-08 00:22] VITALS: BP 143/91; PULSE 86; RESP 15; O2SAT 100
== END 2025-07-08 00:27 | disposition home or self-care (01) ==
PROVIDERS: Emergency Provider Registered Nurse; PCP Family Medicine
DX: S01.111A Laceration without foreign body of right eyelid and periocular area, initial encounter (principal); T15.91XA Foreign body on external eye, part unspecified, right eye, initial encounter; F17.210 Nicotine dependence, cigarettes, uncomplicated; W44.H0XA Other sharp object unspecified, entering into or through a natural orifice, initial encounter; W26.8XXA Contact with other sharp object(s), not elsewhere classified, initial encounter; E66.01 Morbid (severe) obesity due to excess calories; Z68.41 Body mass index [BMI] 40.0-44.9, adult
CPT/HCPCS: 99283; A9270; J7030